=== PATIENT | male | born 1990 | race Caucasian/White ===

== ENCOUNTER 2018-05-24 17:01 | Emergency (ER) | payer OTHER ==
[2018-05-24 18:07] LABS: ADD MAN DIFF? NO
[2018-05-24 18:10] LABS: BASO # 0.1 x10^3/uL (0.0-0.2); BASO % 1 % (0-3); EOS # 0.1 x10^3/uL (0.0-0.7); EOS % 1 % (0-3); HEMATOCRIT 43.8 % (39.0-53.0); HEMOGLOBIN 15.2 g/dL (13.0-17.5); LYMPH % 22 % (24-48); MEAN CORPUSCULAR HEMOGLOBIN 31 pg (25-35); MEAN CORPUSCULAR HGB CONC 35 g/dL (31-37); MEAN CORPUSCULAR VOLUME 88 fL (79-100); MONO # 0.8 x10^3/uL (0.0-1.1); MONO % 9 % (0-9); NEUT # 6.3 x10^3uL (1.8-7.7); NEUT % 68 % (31-73); PLATELET COUNT 313 x10^3/uL (140-400); RED BLOOD COUNT 4.95 x10^6/uL (4.30-5.70); RED CELL DISTRIBUTION WIDTH 13.9 % (11.5-14.5); WHITE BLOOD COUNT 9.3 x10^3/uL (4.0-11.0)
[2018-05-24 18:19] LABS: ANION GAP 10 (6-14); BLOOD UREA NITROGEN 14 mg/dL (8-26); BUN/CREATININE RATIO 18 (6-20); CALCIUM 9.5 mg/dL (8.5-10.1); CARBON DIOXIDE 26 mmol/L (21-32); CHLORIDE 103 mmol/L (98-107); CREATININE 0.8 mg/dL (0.7-1.3); GLUCOSE 73 mg/dL (70-99); POTASSIUM 3.9 mmol/L (3.5-5.1); SODIUM 139 mmol/L (136-145)
[2018-05-24 18:25] LABS: ALBUMIN 4.5 g/dL (3.4-5.0); ALBUMIN/GLOBULIN RATIO 1.4 (1.0-1.7); ALK PHOS 111 U/L (46-116); ALT (SGPT) 32 U/L (16-63); AST (SGOT) 27 U/L (15-37); TOTAL BILIRUBIN 1.2 mg/dL (0.2-1.0); TOTAL PROTEIN 7.7 g/dL (6.4-8.2)
[2018-05-24 18:41] LABS: BILIRUBIN,URINE NEGATIVE (NEG); CLARITY,URINE CLOUDY; COLOR,URINE YELLOW; GLUCOSE,URINE NEGATIVE (NEG); NITRITE,URINE NEGATIVE (NEG); PH,URINE 7.5; PROTEIN,URINE NEGATIVE (NEG-TRACE); UROBILINOGEN,URINE 0.2 mg/dL (0.2 mg/dL)
[2018-05-24 18:45] LABS: BARBITURATES NEG (NEG); BENZODIAZEPINES NEG (NEG); CANNABINOIDS NEG (NEG); COCAINE NEG (NEG); METHADONE NEG (NEG); OPIATES NEG (NEG); PHENCYCLIDINE NEG (NEG)
[2018-05-24 18:46] LABS: AMPHETAMINE/METHAMPHETAMINE POS (NEG); ETHANOL, URINE NEG (NEG)
[2018-05-24 18:54] LABS: AMORPHOUS SEDIMENT,UR PRESENT /HPF
[2018-05-24 18:55] LABS: BACTERIA,URINE FEW /HPF (0-FEW); RBC,URINE 0 /HPF (0-2); SPERM,URINE PRESENT /HPF; WBC,URINE 0 /HPF (0-4)
== END 2018-05-24 19:27 | disposition home or self-care (01) ==
LOC: ER 17:01
DX: F15.129 Other stimulant abuse with intoxication, unspecified (principal); F31.9 Bipolar disorder, unspecified
CPT/HCPCS: 36415; 80053; 80307; 81001; 85025; 99284

== ENCOUNTER 2020-12-04 14:33 | Inpatient (IN) | payer OTHER ==
[~2020-12-04] VITALS: Ht 172.7 cm; Wt 77.1 kg
[2020-12-04] MEDS ORDERED: FUROSEMIDE 40 MG/4 ML VIAL. IVP ONE (15:30)
[2020-12-04 16:23] LABS: BILIRUBIN,URINE NEGATIVE (NEG); CLARITY,URINE CLEAR; COLOR,URINE AMBER; NITRITE,URINE NEGATIVE (NEG); PH,URINE 6.5 (<5.0-8.0); PROTEIN,URINE NEGATIVE (NEG-TRACE)
[2020-12-04 16:28] LABS: BARBITURATES NEG (NEG); BENZODIAZEPINES NEG (NEG); CANNABINOIDS NEG (NEG); COCAINE NEG (NEG); METHADONE NEG (NEG); OPIATES NEG (NEG); PHENCYCLIDINE NEG (NEG)
[2020-12-04 16:30] LABS: AMPHETAMINE/METHAMPHETAMINE NEG (NEG)
--- NOTE | 2020-12-04 16:31 | PHYS DOC ---
Past Medical History Past Medical History: Bipolar, Other Additional Past Medical Histor: aspbergers, bipolar, anxiety, SI, Suicide attempts Past Surgical History: No Surgical History Smoking Status: Never Smoker Alcohol Use: Heavy Drug Use: Cocaine, Methamphetamine, Other General Adult EDM: Chief Complaint: SUICDAL IDEATION HPI: HPI: Patient is a 30 year old male with a history of bipolar presenting to the ED [facility] complaining of suicidal ideation. Patient states today he has felt like killing himself with a gun he has at home. He states he called [facility] where he has been admitted for similar symptoms and they instructed him to come to the ED because they did not have a bed. Patient is currently on 1:1 Review of Systems: Review of Systems: Constitutional: Denies fever or chills. [] Eyes: Denies change in visual acuity. [] HENT: Denies nasal congestion or sore throat. [] Respiratory: Denies cough or shortness of breath. [] Cardiovascular: Denies chest pain or edema. [] GI: Denies abdominal pain, nausea, vomiting, bloody stools or diarrhea. [] : Denies dysuria. [] Musculoskeletal: Denies back pain or joint pain. [] Integument: Denies rash. [] Neurologic: Denies headache, focal weakness or sensory changes. [] Psychiatric: reports SI Heart Score: Risk Factors: Risk Factors: DM, Current or recent (<one month) smoker, HTN, HLP, family history of CAD, obesity. Risk Scores: Score 0 - 3: 2.5% MACE over next 6 weeks - Discharge Home Score 4 - 6: 20.3% MACE over next 6 weeks - Admit for Clinical Observation Score 7 - 10: 72.7% MACE over next 6 weeks - Early Invasive Strategies Current Medications: Current Medications Medications (Trade) Dose Ordered Sig/Benny Start Time Stop Time Status Last Admin Dose Admin Furosemide (Lasix) 40 mg 1X ONCE 12/04/20 15:30 12/04/20 15:31 Cancel Allergies: Allergies: Allergies Coded Allergies Type Severity Reaction Last Updated Verified No Known Drug Allergies 03/28/14 No Physical Exam: PE: Constitutional: Well developed, well nourished, no acute distress, non-toxic appearance. [] HENT: Normocephalic, atraumatic, bilateral external ears normal, oropharynx moist, no oral exudates, nose normal. [] Eyes: PERRLA, EOMI, conjunctiva normal, no discharge. [] Neck: Normal range of motion, no tenderness, supple, no stridor. [] Cardiovascular:Heart rate regular rhythm, no murmur [] Lungs & Thorax: Bilateral breath sounds clear to auscultation [] Abdomen: Bowel sounds normal, soft, no tenderness, no masses, no pulsatile masses. [] Skin: Warm, dry, no erythema, no rash. [] Back: No tenderness, no CVA tenderness. [] Extremities: No tenderness, no cyanosis, no clubbing, ROM intact, no edema. [] Neurologic: Alert and oriented X 3, normal motor function, normal sensory fun ction, no focal deficits noted. [] Psychologic: Appears anxious shaking Current Patient Data: Vital Signs: Vital Signs Date Time Temp Pulse Resp B/P (MAP) Pulse Ox O2 Delivery O2 Flow Rate FiO2 12/04/20 16:00 70 20 140/84 (102) 97 Room Air 12/04/20 14:40 98.2 98.2 EKG: EK interpreted by DR. Ornelas sinus rhythm HR 62 no STEMI[] Radiology/Procedures: Radiology/Procedures: [] Course & Med Decision Making: Course & Med Decision Making Pertinent Labs and Imaging studies reviewed. (See chart for details) This is a 30-year-old male presenting to the ED today complaining of suicidal ideation. See HPI. Labs Currently on 1:1 1630 Ree from the PAT in the ED with patient, she states patient can go to to psych for admission but they need a negative COVID-19 test. Patient has been admitted until his COVID-19 PCR test comes back. Spoke to Dr. Mackey who accepted patient for admission Adriana Disclaimer: Adriana Disclaimer: This electronic medical record was generated, in whole or in part, using a voice recognition dictation system. Departure Departure Impression: Primary Impression: Suicidal ideations Disposition: ADMITTED INPT THIS HOSP Condition: STABLE Referrals: UNKNOWN PCP NAME (PCP) RAYSHAWN VILLATORO APRN Dec 04, 2020 16:31
[2020-12-04 16:41] LABS: BACTERIA,URINE FEW /HPF (0-FEW)
[2020-12-04 16:42] LABS: RBC,URINE 0 /HPF (0-2)
--- NOTE | 2020-12-04 17:26 | PDOC1 ---
History and Physical Date of Admission Date of Admission DATE: 12/04/20 TIME: 17:26 Identification/Chief Complaint Chief Complaint Suicidal ideation Source Source: Chart review, Patient History of Present Illness History of Present Illness Mr Rosales is a 30 year old male with a history of bipolar disorder, aspergers, polysubstance abuse, ETOH abuse, history of suicide attempts who is presenting to the ED today complaining of suicidal ideation. Tells nursing staff nurse practitioner myself that he has a gun at home and he is thinking of killing himself. He called [facility] where he has been admitted for similar symptoms and they instructed him to come to the nearest ED because they did not have a bed for admission and require COVID-19 testing. Very anxious in ED. Labs within normal limits. Tox screen negative. Patient is currently on 1:1 EKG sinus rhythm HR 62 no STEMI Nurse psych liaison can arrange placement inpatient psych once COVID 19 testing is negative. Admitted for further observation for his own safety given he expressed a suicide plan. Past Medical History Psych: Anxiety, Addictions, Bipolar, Depression Past Surgical History Past Surgical History: No pertinent history Family History Family History: Depression (Mother) Social History Smoke: No ALCOHOL: heavy Drugs: Cocaine, Crystal meth Current Problem List Problem List Problems Medical Problems: (1) Suicidal ideations Status: Acute Current Medications Current Medications Current Medications Furosemide (Lasix) 40 mg 1X ONCE IVP ; Start 12/04/20 at 15:30; Stop 12/04/20 at 15:31; Status Cancel Allergies Allergies: Coded Allergies: No Known Drug Allergies (Unverified , 03/28/14) ROS General: YES: Fatigue, Malaise; No: Chills, Night Sweats, Appetite, Other PSYCHOLOGICAL ROS: YES: Anxiety, Behavioral Disorder, Concentration difficultie , Depression, Irritablity, Mood Swings, Obsessive thoughts, Suicidal ideation Eyes: No Blurry vision, No Decreased vision, No Double vision, No Dry eyes, No Excessive tearing, No Eye Pain, No Itchy Eyes, No Loss of vision, No Photophobia, No Scotomata, No Uses contacts, No Uses glasses, No Other HEENT: No: Heacaches, Visual Changes, Hearing change, Nasal congestion, Nasal discharge, Oral lesions, Sinus pain, Sore Throat, Epistaxis, Sneezing, Snoring, Tinnitus, Vertigo, Vocal changes, Other ALLERGY AND IMMUNOLOGY: No: Hives, Insect Bite Sensitivity, Itchy/Watery Eyes, Nasal Congestion, Post Nasal Drip, Seasonal Allergies, Other Hematological and Lymphatic: No: Bleeding Problems, Blood Clots, Blood Transfusions, Brusing, Night Sweats, Pallor, Swollen Lymph Nodes, Other Breast: No New/Changing Breast Lumps, No Nipple changes, No Nipple discharge, No Other Respiratory: No: Cough, Hemoptysis, Orthopnea, Pleuritic Pain, Shortness of breath, SOB with excertion, Sputum Changes, Stridor, Tachypnea, Wheezing, Other Cardiovascular: No Chest Pain, No Palpitations, No Orthopnea, No Paroxysmal Noc. Dyspnea, No Edema, No Lt Headedness, No Other Gastrointestinal: No Nausea, No Vomiting, No Abdominal Pain, No Diarrhea, No Constipation, No Melena, No Hematochezia, No Other Genitourinary: No Dysuria, No Frequency, No Incontinence, No Hematuria, No Retention, No Discharge, No Urgency, No Pain, No Flank Pain, No Other, No , No , No , No , No , No , No Musculoskeletal: No Gait Disturbance, No Joint Pain, No Joint Stiffness, No Joint Swelling, No Muscle Pain, No Muscular Weakness, No Pain In:, No Swelling In:, No Other Neurological: No Behavorial Changes, No Bowel/Bladder ControlChng, No Confusion, No Dizziness, No Gait Disturbance, No Headaches, No Impaired Coord/balance, No Memory Loss, No Numbness/Tingling, No Seizures, No Speech Problems, No Tremors, No Visual Changes, No Weakness, No Other Skin: No Dry Skin, No Eczema, No Hair Changes, No Lumps, No Mole Changes, No Mottling, No Nail Changes, No Pruritus, No Rash, No Skin Lesion Changes, No Other, No Acne Physical Exam General: Alert, Oriented X3, Cooperative, mild distress HEENT: Atraumatic, PERRLA, EOMI, Mucous membr. moist/pink Vitals Vitals Vital Signs Date Time Temp Pulse Resp B/P (MAP) Pulse Ox O2 Delivery O2 Flow Rate FiO2 12/04/20 17:00 65 16 139/68 (91) 98 Room Air 12/04/20 14:40 98.2 98.2 Labs Labs Laboratory Tests Test 12/04/20 16:05 Urine Collection Type Void Urine Color Shira Urine Clarity Clear Urine pH 6.5 (<5.0-8.0) Urine Specific Conway 1.025 (1.000-1.030) Urine Protein Negative mg/dL (NEG-TRACE) Urine Glucose (UA) Negative mg/dL (NEG) Urine Ketones (Stick) Trace mg/dL (NEG) Urine Blood Negative (NEG) Urine Nitrite Negative (NEG) Urine Bilirubin Negative (NEG) Urine Urobilinogen Dipstick 1.0 mg/dL (0.2 mg/dL) Urine Leukocyte Esterase Negative (NEG) Urine RBC 0 /HPF (0-2) Urine WBC 1-4 /HPF (0-4) Urine Squamous Epithelial Cells Occ /LPF Urine Bacteria Few /HPF (0-FEW) Urine Mucus Mod /LPF Urine Opiates Screen Neg (NEG) Urine Methadone Screen Neg (NEG) Urine Barbiturates Neg (NEG) Urine Phencyclidine Screen Neg (NEG) Urine Amphetamine/Methamphetamine Neg (NEG) Urine Benzodiazepines Screen Neg (NEG) Urine Cocaine Screen Neg (NEG) Urine Cannabinoids Screen Neg (NEG) Urine Ethyl Alcohol Neg (NEG) Laboratory Tests Test 12/04/20 16:05 Urine Collection Type Void Urine Color Shira Urine Clarity Clear Urine pH 6.5 (<5.0-8.0) Urine Specific Conway 1.025 (1.000-1.030) Urine Protein Negative mg/dL (NEG-TRACE) Urine Glucose (UA) Negative mg/dL (NEG) Urine Ketones (Stick) Trace mg/dL (NEG) Urine Blood Negative (NEG) Urine Nitrite Negative (NEG) Urine Bilirubin Negative (NEG) Urine Urobilinogen Dipstick 1.0 mg/dL (0.2 mg/dL) Urine Leukocyte Esterase Negative (NEG) Urine RBC 0 /HPF (0-2) Urine WBC 1-4 /HPF (0-4) Urine Squamous Epithelial Cells Occ /LPF Urine Bacteria Few /HPF (0-FEW) Urine Mucus Mod /LPF Urine Opiates Screen Neg (NEG) Urine Methadone Screen Neg (NEG) Urine Barbiturates Neg (NEG) Urine Phencyclidine Screen Neg (NEG) Urine Amphetamine/Methamphetamine Neg (NEG) Urine Benzodiazepines Screen Neg (NEG) Urine Cocaine Screen Neg (NEG) Urine Cannabinoids Screen Neg (NEG) Urine Ethyl Alcohol Neg (NEG) VTE Prophylaxis Ordered VTE Prophylaxis Devices: No VTE Pharmacological Prophylaxi: No Assessment/Plan Assessment/Plan A/P: Suicidal ideation -with an active plan to shoot himself. Patient is not safe to discharge home in the care of his family as he has previously attempted suicide and had multiple inpatient psychiatric placements. Methamphetamine abuse -not currently active. Alcohol abuse -currently heavily drinking. Will monitor for withdrawal symptoms as needed Ativan. Bipolar disorder with depression -we will continue home medications FEN - General diet PPX - Ambulatory FULL CODE DIspo - inpatient for safety due to suicidal ideation and active plan to shoot himself he is not safe for discharge. Justifications for Admission Other Justification LEANA JOHN MD Dec 04, 2020 17:26
[2020-12-04] MEDS ORDERED: QUET200T PO (17:29)
[2020-12-04] MEDS ORDERED: DIVA500T17 PO (17:29)
[2020-12-04] MEDS ORDERED: ESCI20TA8 PO (17:29)
[2020-12-04 18:22] LABS: BASO # 0.1 x10^3/uL (0.0-0.2); BASO % 1 % (0-3); EOS # 0.1 x10^3/uL (0.0-0.7); EOS % 2 % (0-3); HEMATOCRIT 43.9 % (39.0-53.0); HEMOGLOBIN 15.5 g/dL (13.0-17.5); LYMPH # 1.8 x10^3/uL (1.0-4.8); LYMPH % 27 % (24-48); MEAN CORPUSCULAR HEMOGLOBIN 32 pg (25-35); MEAN CORPUSCULAR HGB CONC 35 g/dL (31-37); MEAN CORPUSCULAR VOLUME 91 fL (79-100); MONO # 0.5 x10^3/uL (0.0-1.1); MONO % 8 % (0-9); NEUT % 62 % (31-73); PLATELET COUNT 243 x10^3/uL (140-400); RED BLOOD COUNT 4.84 x10^6/uL (4.30-5.70); RED CELL DISTRIBUTION WIDTH 13.5 % (11.5-14.5); WHITE BLOOD COUNT 6.5 x10^3/uL (4.0-11.0)
[2020-12-04 18:35] LABS: CALCIUM 9.2 mg/dL (8.5-10.1); CREATININE 0.9 mg/dL (0.7-1.3); GFR 99.8; POTASSIUM 4.4 mmol/L (3.5-5.1)
[2020-12-04 18:38] LABS: ALBUMIN/GLOBULIN RATIO 1.2 (1.0-1.7); ETHANOL < 10 mg/dL (0-10); TOTAL BILIRUBIN 0.8 mg/dL (0.2-1.0); TOTAL PROTEIN 7.3 g/dL (6.4-8.2)
[2020-12-04 18:39] LABS: ACETAMIN < 2 mcg/ml (10-30); SALIC < 2.8 mg/dL (2.8-20.0)
[2020-12-04] MEDS ORDERED: ACETAMINOPHEN 325 MG TABLET. PO PRN (18:45)
[2020-12-04] MEDS ORDERED: ONDANSETRON PF 4 MG/2 ML VIAL. IV PRN (18:45)
[2020-12-04] MEDS: LORazepam 0.5 MG TABLET PO PRN ×2 (19:42→23:42)
[2020-12-04 20:00] VITALS: BP 149/91
[2020-12-04] MEDS: QUEtiapine 100 MG TABLET. PO SCH ×2 (20:58→22:39)
--- NOTE | 2020-12-04 21:31 | NUR ---
For CAGE assessment, not fully completed @ this time. Pt claimed he drinks 750 ml of vodka 3-4 times a week. Pt claimed he had been asked same questions today. Will try later.
[2020-12-04] MEDS: DIVALPROEX EXTENDED RELEASE 500 MG TAB.ER.24H. PO SCH (22:40)
[2020-12-04 23:00] VITALS: BP 151/83
[2020-12-05 03:07] VITALS: BP 155/92
[2020-12-05 06:57] VITALS: BP 119/68
[2020-12-05] MEDS: CITALOPRAM 20 MG TABLET. PO SCH (07:57)
[2020-12-05] MEDS: LORazepam 0.5 MG TABLET PO PRN ×3 (08:08→16:14)
--- NOTE | 2020-12-05 10:21 | NUR ---
JONATHAN following for discharge planning. Spoke with RN and reviewed chart. JONATHAN consulted to assist with in-patient pscyahtric treatment and substance abuse. Pt from home, room air, COVID pending (Rapid negative). Awaiting results of PCR for possible placement. Pt SI with [facility]ela of SI. Referral to Gustavo with [facility]. Pt has been to the inpatient behavioral health unit at . JONATHAN following. Addendum: 12/05/20 at 1458 by MARNIE CASTILLO Spoke with Rebecca from [facility]. is full. PCR COVID result came back negative. Clinicals printed and referral sent to [facility] in [place] [employer]. Pt will likely discharge this evening pending physician acceptance.
[2020-12-05 10:35] VITALS: BP 140/87
--- NOTE | 2020-12-05 10:54 | PDOC ---
PROGRESS NOTES Date of Service: DATE: 12/05/20 TIME: 10:53 Chief Complaint Chief Complaint Suicidal ideation -with an active plan to shoot himself. Patient is not safe to discharge home in the care of his family as he has previously attempted suicide and had multiple inpatient psychiatric placements. Methamphetamine abuse -not currently active. Alcohol abuse -currently heavily drinking. Will monitor for withdrawal symptoms as needed Ativan. Bipolar disorder with depression -we will continue home medications FEN - General diet PPX - Ambulatory FULL CODE DIspo - inpatient for safety due to suicidal ideation and active plan to shoot himself he is not safe for discharge. History of Present Illness History of Present Illness History of Present Illness Mr Rosales is a 30 year old male with a history of bipolar disorder, aspergers, polysubstance abuse, ETOH abuse, history of suicide attempts who is presenting to the ED today complaining of suicidal ideation. Tells nursing staff nurse practitioner myself that he has a gun at home and he is thinking of killing himself. He called [facility] where he has been admitted for similar symptoms and they instructed him to come to the nearest ED because they did not have a bed for admission and require COVID-19 testing. Very anxious in ED. Labs within normal limits. Tox screen negative. Patient is currently on 1:1 EKG sinus rhythm HR 62 no STEMI Nurse psych liaison can arrange placement inpatient psych once COVID 19 testing is negative. Admitted for further observation for his own safety given he expressed a suicide plan. 12/05: Still having 50-50 suicidal ideation overall he does not seem to be dep ressed but he is very upfront alone how much he drinks and the drugs he uses in order to cope with his depression. We will wait for case management for disposition Vitals Vitals Vital Signs Date Time Temp Pulse Resp B/P (MAP) Pulse Ox O2 Delivery O2 Flow Rate FiO2 12/05/20 10:35 96.7 72 16 140/87 (104) 96 Room Air 96.7 Physical Exam General: Alert, Oriented X3, Cooperative, mild distress Heart: Regular rate, Normal S1, Normal S2 Lungs: Clear Abdomen: Normal bowel sounds, Soft Extremities: No clubbing, No cyanosis Skin: No rashes, No breakdown Labs LABS Laboratory Tests Test 12/04/20 16:05 12/04/20 18:10 Urine Collection Type Void Urine Color Shira Urine Clarity Clear Urine pH 6.5 (<5.0-8.0) Urine Specific [place] 1.025 (1.000-1.030) Urine Protein Negative mg/dL (NEG-TRACE) Urine Glucose (UA) Negative mg/dL (NEG) Urine Ketones (Stick) Trace mg/dL (NEG) Urine Blood Negative (NEG) Urine Nitrite Negative (NEG) Urine Bilirubin Negative (NEG) Urine Urobilinogen Dipstick 1.0 mg/dL (0.2 mg/dL) Urine Leukocyte Esterase Negative (NEG) Urine RBC 0 /HPF (0-2) Urine WBC 1-4 /HPF (0-4) Urine Squamous Epithelial Cells Occ /LPF Urine Bacteria Few /HPF (0-FEW) Urine Mucus Mod /LPF Urine Opiates Screen Neg (NEG) Urine Methadone Screen Neg (NEG) Urine Barbiturates Neg (NEG) Urine Phencyclidine Screen Neg (NEG) Urine Amphetamine/Methamphetamine Neg (NEG) Urine Benzodiazepines Screen Neg (NEG) Urine Cocaine Screen Neg (NEG) Urine Cannabinoids Screen Neg (NEG) Urine Ethyl Alcohol Neg (NEG) White Blood Count 6.5 x10^3/uL (4.0-11.0) Red Blood Count 4.84 x10^6/uL (4.30-5.70) Hemoglobin 15.5 g/dL (13.0-17.5) Hematocrit 43.9 % (39.0-53.0) Mean Corpuscular Volume 91 fL (79-100) Mean Corpuscular Hemoglobin 32 pg (25-35) Mean Corpuscular Hemoglobin Concent 35 g/dL (31-37) Red Cell Distribution Width 13.5 % (11.5-14.5) Platelet Count 243 x10^3/uL (140-400) Neutrophils (%) (Auto) 62 % (31-73) Lymphocytes (%) (Auto) 27 % (24-48) Monocytes (%) (Auto) 8 % (0-9) Eosinophils (%) (Auto) 2 % (0-3) Basophils (%) (Auto) 1 % (0-3) Neutrophils # (Auto) 4.0 x10^3/uL (1.8-7.7) Lymphocytes # (Auto) 1.8 x10^3/uL (1.0-4.8) Monocytes # (Auto) 0.5 x10^3/uL (0.0-1.1) Eosinophils # (Auto) 0.1 x10^3/uL (0.0-0.7) Basophils # (Auto) 0.1 x10^3/uL (0.0-0.2) Sodium Level 140 mmol/L (136-145) Potassium Level 4.4 mmol/L (3.5-5.1) Chloride Level 104 mmol/L (98-107) Carbon Dioxide Level 28 mmol/L (21-32) Anion Gap 8 (6-14) Blood Urea Nitrogen 11 mg/dL (8-26) Creatinine 0.9 mg/dL (0.7-1.3) Estimated GFR (Cockcroft-Gault) 99.8 BUN/Creatinine Ratio 12 (6-20) Glucose Level 91 mg/dL (70-99) Calcium Level 9.2 mg/dL (8.5-10.1) Total Bilirubin 0.8 mg/dL (0.2-1.0) Aspartate Amino Transf (AST/SGOT) 20 U/L (15-37) Alanine Aminotransferase (ALT/SGPT) 37 U/L (16-63) Alkaline Phosphatase 63 U/L (46-116) Total Protein 7.3 g/dL (6.4-8.2) Albumin 4.0 g/dL (3.4-5.0) Albumin/Globulin Ratio 1.2 (1.0-1.7) Lipase 160 U/L (73-393) Salicylates Level < 2.8 mg/dL (2.8-20.0) Salicylate Last Dose Date Unk Salicylate Last Dose Time Unk Acetaminophen Level < 2 mcg/ml (10-30) Acetaminophen Last Dose Date Unk Acetaminophen Last Dose Time Unk Ethyl Alcohol Level < 10 mg/dL (0-10) SARS-CoV-2 Antigen (Rapid) Negative (NEGATIVE) Review of Systems Review of Systems Review of systems pertinent as per HPI otherwise 14 point review of system is negative Assessment and Plan Assessmemt and Plan Problems Medical Problems: (1) Suicidal ideations Status: Acute Comment Review of Relevant I have reviewed the following items leyla (where applicable) has been applied. Labs Laboratory Tests Test 12/04/20 16:05 12/04/20 18:10 Urine Collection Type Void Urine Color Shira Urine Clarity Clear Urine pH 6.5 (<5.0-8.0) Urine Specific [place] 1.025 (1.000-1.030) Urine Protein Negative mg/dL (NEG-TRACE) Urine Glucose (UA) Negative mg/dL (NEG) Urine Ketones (Stick) Trace mg/dL (NEG) Urine Blood Negative (NEG) Urine Nitrite Negative (NEG) Urine Bilirubin Negative (NEG) Urine Urobilinogen Dipstick 1.0 mg/dL (0.2 mg/dL) Urine Leukocyte Esterase Negative (NEG) Urine RBC 0 /HPF (0-2) Urine WBC 1-4 /HPF (0-4) Urine Squamous Epithelial Cells Occ /LPF Urine Bacteria Few /HPF (0-FEW) Urine Mucus Mod /LPF Urine Opiates Screen Neg (NEG) Urine Methadone Screen Neg (NEG) Urine Barbiturates Neg (NEG) Urine Phencyclidine Screen Neg (NEG) Urine Amphetamine/Methamphetamine Neg (NEG) Urine Benzodiazepines Screen Neg (NEG) Urine Cocaine Screen Neg (NEG) Urine Cannabinoids Screen Neg (NEG) Urine Ethyl Alcohol Neg (NEG) White Blood Count 6.5 x10^3/uL (4.0-11.0) Red Blood Count 4.84 x10^6/uL (4.30-5.70) Hemoglobin 15.5 g/dL (13.0-17.5) Hematocrit 43.9 % (39.0-53.0) Mean Corpuscular Volume 91 fL (79-100) Mean Corpuscular Hemoglobin 32 pg (25-35) Mean Corpuscular Hemoglobin Concent 35 g/dL (31-37) Red Cell Distribution Width 13.5 % (11.5-14.5) Platelet Count 243 x10^3/uL (140-400) Neutrophils (%) (Auto) 62 % (31-73) Lymphocytes (%) (Auto) 27 % (24-48) Monocytes (%) (Auto) 8 % (0-9) Eosinophils (%) (Auto) 2 % (0-3) Basophils (%) (Auto) 1 % (0-3) Neutrophils # (Auto) 4.0 x10^3/uL (1.8-7.7) Lymphocytes # (Auto) 1.8 x10^3/uL (1.0-4.8) Monocytes # (Auto) 0.5 x10^3/uL (0.0-1.1) Eosinophils # (Auto) 0.1 x10^3/uL (0.0-0.7) Basophils # (Auto) 0.1 x10^3/uL (0.0-0.2) Sodium Level 140 mmol/L (136-145) Potassium Level 4.4 mmol/L (3.5-5.1) Chloride Level 104 mmol/L (98-107) Carbon Dioxide Level 28 mmol/L (21-32) Anion Gap 8 (6-14) Blood Urea Nitrogen 11 mg/dL (8-26) Creatinine 0.9 mg/dL (0.7-1.3) Estimated GFR (Cockcroft-Gault) 99.8 BUN/Creatinine Ratio 12 (6-20) Glucose Level 91 mg/dL (70-99) Calcium Level 9.2 mg/dL (8.5-10.1) Total Bilirubin 0.8 mg/dL (0.2-1.0) Aspartate Amino Transf (AST/SGOT) 20 U/L (15-37) Alanine Aminotransferase (ALT/SGPT) 37 U/L (16-63) Alkaline Phosphatase 63 U/L (46-116) Total Protein 7.3 g/dL (6.4-8.2) Albumin 4.0 g/dL (3.4-5.0) Albumin/Globulin Ratio 1.2 (1.0-1.7) Lipase 160 U/L (73-393) Salicylates Level < 2.8 mg/dL (2.8-20.0) Salicylate Last Dose Date Unk Salicylate Last Dose Time Unk Acetaminophen Level < 2 mcg/ml (10-30) Acetaminophen Last Dose Date Unk Acetaminophen Last Dose Time Unk Ethyl Alcohol Level < 10 mg/dL (0-10) SARS-CoV-2 Antigen (Rapid) Negative (NEGATIVE) Laboratory Tests Test 12/04/20 16:05 12/04/20 18:10 Urine Collection Type Void Urine Color Shira Urine Clarity Clear Urine pH 6.5 (<5.0-8.0) Urine Specific [place] 1.025 (1.000-1.030) Urine Protein Negative mg/dL (NEG-TRACE) Urine Glucose (UA) Negative mg/dL (NEG) Urine Ketones (Stick) Trace mg/dL (NEG) Urine Blood Negative (NEG) Urine Nitrite Negative (NEG) Urine Bilirubin Negative (NEG) Urine Urobilinogen Dipstick 1.0 mg/dL (0.2 mg/dL) Urine Leukocyte Esterase Negative (NEG) Urine RBC 0 /HPF (0-2) Urine WBC 1-4 /HPF (0-4) Urine Squamous Epithelial Cells Occ /LPF Urine Bacteria Few /HPF (0-FEW) Urine Mucus Mod /LPF Urine Opiates Screen Neg (NEG) Urine Methadone Screen Neg (NEG) Urine Barbiturates Neg (NEG) Urine Phencyclidine Screen Neg (NEG) Urine Amphetamine/Methamphetamine Neg (NEG) Urine Benzodiazepines Screen Neg (NEG) Urine Cocaine Screen Neg (NEG) Urine Cannabinoids Screen Neg (NEG) Urine Ethyl Alcohol Neg (NEG) White Blood Count 6.5 x10^3/uL (4.0-11.0) Red Blood Count 4.84 x10^6/uL (4.30-5.70) Hemoglobin 15.5 g/dL (13.0-17.5) Hematocrit 43.9 % (39.0-53.0) Mean Corpuscular Volume 91 fL (79-100) Mean Corpuscular Hemoglobin 32 pg (25-35) Mean Corpuscular Hemoglobin Concent 35 g/dL (31-37) Red Cell Distribution Width 13.5 % (11.5-14.5) Platelet Count 243 x10^3/uL (140-400) Neutrophils (%) (Auto) 62 % (31-73) Lymphocytes (%) (Auto) 27 % (24-48) Monocytes (%) (Auto) 8 % (0-9) Eosinophils (%) (Auto) 2 % (0-3) Basophils (%) (Auto) 1 % (0-3) Neutrophils # (Auto) 4.0 x10^3/uL (1.8-7.7) Lymphocytes # (Auto) 1.8 x10^3/uL (1.0-4.8) Monocytes # (Auto) 0.5 x10^3/uL (0.0-1.1) Eosinophils # (Auto) 0.1 x10^3/uL (0.0-0.7) Basophils # (Auto) 0.1 x10^3/uL (0.0-0.2) Sodium Level 140 mmol/L (136-145) Potassium Level 4.4 mmol/L (3.5-5.1) Chloride Level 104 mmol/L (98-107) Carbon Dioxide Level 28 mmol/L (21-32) Anion Gap 8 (6-14) Blood Urea Nitrogen 11 mg/dL (8-26) Creatinine 0.9 mg/dL (0.7-1.3) Estimated GFR (Cockcroft-Gault) 99.8 BUN/Creatinine Ratio 12 (6-20) Glucose Level 91 mg/dL (70-99) Calcium Level 9.2 mg/dL (8.5-10.1) Total Bilirubin 0.8 mg/dL (0.2-1.0) Aspartate Amino Transf (AST/SGOT) 20 U/L (15-37) Alanine Aminotransferase (ALT/SGPT) 37 U/L (16-63) Alkaline Phosphatase 63 U/L (46-116) Total Protein 7.3 g/dL (6.4-8.2) Albumin 4.0 g/dL (3.4-5.0) Albumin/Globulin Ratio 1.2 (1.0-1.7) Lipase 160 U/L (73-393) Salicylates Level < 2.8 mg/dL (2.8-20.0) Salicylate Last Dose Date Unk Salicylate Last Dose Time Unk Acetaminophen Level < 2 mcg/ml (10-30) Acetaminophen Last Dose Date Unk Acetaminophen Last Dose Time Unk Ethyl Alcohol Level < 10 mg/dL (0-10) SARS-CoV-2 Antigen (Rapid) Negative (NEGATIVE) Medications Current Medications Furosemide (Lasix) 40 mg 1X ONCE IVP ; Start 12/04/20 at 15:30; Stop 12/04/20 at 15:31; Status Cancel Citalopram Hydrobromide (CeleXA) 40 mg DAILY PO Last administered on 12/05/20at 07:57; Start 12/05/20 at 09:00 Quetiapine Fumarate (SEROquel) 200 mg QHS PO Last administered on 12/04/20at 22:39; Start 12/04/20 at 21:00 Ondansetron HCl (Zofran) 4 mg PRN Q4HRS PRN IV NAUSEA/VOMITING; Start 12/04/20 at 18:45 Acetaminophen (Tylenol) 650 mg PRN Q4HRS PRN PO TEMP OVER 100.4F OR MILD PAIN; Start 12/04/20 at 18:45 Lorazepam (Ativan) 0.5 mg PRN Q4HRS PRN PO ANXIETY / AGITATION Last administered on 12/05/20at 08:08; Start 12/04/20 at 18:45 Divalproex Sodium (Depakote Er) 1,500 mg HS PO Last administered on 12/04/20at 22:40; Start 12/04/20 at 22:30 Active Scripts Active Reported Escitalopram Oxalate 20 Mg Tablet 1 Tab PO DAILY 90 Days Divalproex Sodium Er (Divalproex Sodium) 500 Mg Tab.er.24h 1,500 Mg PO DAILY 30 Days Quetiapine Fumarate 200 Mg Tablet 1 Tab PO QHS 90 Days Vitals/I & O Vital Sign - Last 24 Hours 12/04/20 12/04/20 12/04/20 12/04/20 14:40 15:00 15:30 16:00 Temp 98.2 98.2 Pulse 62 65 63 70 Resp 18 16 16 20 B/P (MAP) 187/105 (132) 153/72 (99) 133/80 (97) 140/84 (102) Pulse Ox 98 98 97 97 O2 Delivery Room Air Room Air Room Air Room Air 12/04/20 12/04/20 12/04/20 12/04/20 16:30 16:55 17:00 17:30 Pulse 70 65 67 Resp 20 16 16 B/P (MAP) 140/87 (104) 139/68 (91) 133/83 (100) Pulse Ox 98 98 97 O2 Delivery Room Air Room Air Room Air Room Air 12/04/20 12/04/20 12/04/20 12/04/20 18:00 18:30 19:00 19:00 Pulse 62 73 69 70 Resp 20 16 B/P (MAP) 138/75 (96) 154/85 (108) 150/75 (100) 137/81 (99) Pulse Ox 98 99 98 98 O2 Delivery Room Air Room Air Room Air Room Air 12/04/20 12/04/20 12/04/20 12/05/20 20:00 20:00 23:00 03:07 Temp 97.0 96.9 96.3 97.0 96.9 96.3 Pulse 77 81 81 Resp 20 18 18 B/P (MAP) 149/91 (110) 151/83 (105) 155/92 (113) Pulse Ox 95 95 95 O2 Delivery Room Air Room Air Room Air Room Air 12/05/20 12/05/20 12/05/20 06:57 08:00 10:35 Temp 96.7 96.7 Pulse 62 72 Resp 16 16 B/P (MAP) 119/68 (85) 140/87 (104) Pulse Ox 98 96 O2 Delivery Room Air Room Air Room Air Intake and Output 12/04/20 12/04/20 12/05/20 15:00 23:00 07:00 Intake Total 180 ml 240 ml Balance 180 ml 240 ml Justicifation of Admission Dx: Justifications for Admission: Justification of Admission Dx: Comment: (Suicidal ideation) DARY PARKINSON MD Dec 05, 2020 10:54
--- NOTE | 2020-12-05 14:43 | PDOC3 ---
Discharge Summary Visit Information Date of Admission: Dec 04, 2020 Date of Discharge: Dec 05, 2020 Admitting Diagnosis Comment: Suicidal ideation -with an active plan to shoot himself. Patient is not safe to discharge home in the care of his family as he has previously attempted suicide and had multiple inpatient psychiatric placements. Methamphetamine abuse -not currently active. Alcohol abuse -currently heavily drinking. Will monitor for withdrawal symptoms as needed Ativan. Bipolar disorder with depression -we will continue home medications Final Diagnosis Problems Medical Problems: (1) Suicidal ideations Status: Acute Suicidal ideation -with an active plan to shoot himself. Patient is not safe to discharge home in the care of his family as he has previously attempted suicide and had multiple inpatient psychiatric placements. Methamphetamine abuse -not currently active. Alcohol abuse -currently heavily drinking. Will monitor for withdrawal symptoms as needed Ativan. Bipolar disorder with depression -we will continue home medications Brief Hospital Course Allergies Allergies Coded Allergies Type Severity Reaction Last Updated Verified No Known Drug Allergies 03/28/14 No Vital Signs Vital Signs Date Time Temp Pulse Resp B/P (MAP) Pulse Ox O2 Delivery O2 Flow Rate FiO2 12/05/20 10:35 96.7 72 16 140/87 (104) 96 Room Air 96.7 Lab Results Laboratory Tests Test 12/04/20 16:05 12/04/20 18:10 Urine Collection Type Void Urine Color Shira Urine Clarity Clear Urine pH 6.5 (<5.0-8.0) Urine Specific [place] 1.025 (1.000-1.030) Urine Protein Negative mg/dL (NEG-TRACE) Urine Glucose (UA) Negative mg/dL (NEG) Urine Ketones (Stick) Trace mg/dL (NEG) Urine Blood Negative (NEG) Urine Nitrite Negative (NEG) Urine Bilirubin Negative (NEG) Urine Urobilinogen Dipstick 1.0 mg/dL (0.2 mg/dL) Urine Leukocyte Esterase Negative (NEG) Urine RBC 0 /HPF (0-2) Urine WBC 1-4 /HPF (0-4) Urine Squamous Epithelial Cells Occ /LPF Urine Bacteria Few /HPF (0-FEW) Urine Mucus Mod /LPF Urine Opiates Screen Neg (NEG) Urine Methadone Screen Neg (NEG) Urine Barbiturates Neg (NEG) Urine Phencyclidine Screen Neg (NEG) Urine Amphetamine/Methamphetamine Neg (NEG) Urine Benzodiazepines Screen Neg (NEG) Urine Cocaine Screen Neg (NEG) Urine Cannabinoids Screen Neg (NEG) Urine Ethyl Alcohol Neg (NEG) White Blood Count 6.5 x10^3/uL (4.0-11.0) Red Blood Count 4.84 x10^6/uL (4.30-5.70) Hemoglobin 15.5 g/dL (13.0-17.5) Hematocrit 43.9 % (39.0-53.0) Mean Corpuscular Volume 91 fL (79-100) Mean Corpuscular Hemoglobin 32 pg (25-35) Mean Corpuscular Hemoglobin Concent 35 g/dL (31-37) Red Cell Distribution Width 13.5 % (11.5-14.5) Platelet Count 243 x10^3/uL (140-400) Neutrophils (%) (Auto) 62 % (31-73) Lymphocytes (%) (Auto) 27 % (24-48) Monocytes (%) (Auto) 8 % (0-9) Eosinophils (%) (Auto) 2 % (0-3) Basophils (%) (Auto) 1 % (0-3) Neutrophils # (Auto) 4.0 x10^3/uL (1.8-7.7) Lymphocytes # (Auto) 1.8 x10^3/uL (1.0-4.8) Monocytes # (Auto) 0.5 x10^3/uL (0.0-1.1) Eosinophils # (Auto) 0.1 x10^3/uL (0.0-0.7) Basophils # (Auto) 0.1 x10^3/uL (0.0-0.2) Sodium Level 140 mmol/L (136-145) Potassium Level 4.4 mmol/L (3.5-5.1) Chloride Level 104 mmol/L (98-107) Carbon Dioxide Level 28 mmol/L (21-32) Anion Gap 8 (6-14) Blood Urea Nitrogen 11 mg/dL (8-26) Creatinine 0.9 mg/dL (0.7-1.3) Estimated GFR (Cockcroft-Gault) 99.8 BUN/Creatinine Ratio 12 (6-20) Glucose Level 91 mg/dL (70-99) Calcium Level 9.2 mg/dL (8.5-10.1) Total Bilirubin 0.8 mg/dL (0.2-1.0) Aspartate Amino Transf (AST/SGOT) 20 U/L (15-37) Alanine Aminotransferase (ALT/SGPT) 37 U/L (16-63) Alkaline Phosphatase 63 U/L (46-116) Total Protein 7.3 g/dL (6.4-8.2) Albumin 4.0 g/dL (3.4-5.0) Albumin/Globulin Ratio 1.2 (1.0-1.7) Lipase 160 U/L (73-393) Salicylates Level < 2.8 mg/dL (2.8-20.0) Salicylate Last Dose Date Unk Salicylate Last Dose Time Unk Acetaminophen Level < 2 mcg/ml (10-30) Acetaminophen Last Dose Date Unk Acetaminophen Last Dose Time Unk Ethyl Alcohol Level < 10 mg/dL (0-10) Coronavirus (PCR) Not detected (Not Detected) SARS-CoV-2 Antigen (Rapid) Negative (NEGATIVE) Laboratory Tests Test 12/04/20 16:05 12/04/20 18:10 Urine Collection Type Void Urine Color Shira Urine Clarity Clear Urine pH 6.5 (<5.0-8.0) Urine Specific [place] 1.025 (1.000-1.030) Urine Protein Negative mg/dL (NEG-TRACE) Urine Glucose (UA) Negative mg/dL (NEG) Urine Ketones (Stick) Trace mg/dL (NEG) Urine Blood Negative (NEG) Urine Nitrite Negative (NEG) Urine Bilirubin Negative (NEG) Urine Urobilinogen Dipstick 1.0 mg/dL (0.2 mg/dL) Urine Leukocyte Esterase Negative (NEG) Urine RBC 0 /HPF (0-2) Urine WBC 1-4 /HPF (0-4) Urine Squamous Epithelial Cells Occ /LPF Urine Bacteria Few /HPF (0-FEW) Urine Mucus Mod /LPF Urine Opiates Screen Neg (NEG) Urine Methadone Screen Neg (NEG) Urine Barbiturates Neg (NEG) Urine Phencyclidine Screen Neg (NEG) Urine Amphetamine/Methamphetamine Neg (NEG) Urine Benzodiazepines Screen Neg (NEG) Urine Cocaine Screen Neg (NEG) Urine Cannabinoids Screen Neg (NEG) Urine Ethyl Alcohol Neg (NEG) White Blood Count 6.5 x10^3/uL (4.0-11.0) Red Blood Count 4.84 x10^6/uL (4.30-5.70) Hemoglobin 15.5 g/dL (13.0-17.5) Hematocrit 43.9 % (39.0-53.0) Mean Corpuscular Volume 91 fL (79-100) Mean Corpuscular Hemoglobin 32 pg (25-35) Mean Corpuscular Hemoglobin Concent 35 g/dL (31-37) Red Cell Distribution Width 13.5 % (11.5-14.5) Platelet Count 243 x10^3/uL (140-400) Neutrophils (%) (Auto) 62 % (31-73) Lymphocytes (%) (Auto) 27 % (24-48) Monocytes (%) (Auto) 8 % (0-9) Eosinophils (%) (Auto) 2 % (0-3) Basophils (%) (Auto) 1 % (0-3) Neutrophils # (Auto) 4.0 x10^3/uL (1.8-7.7) Lymphocytes # (Auto) 1.8 x10^3/uL (1.0-4.8) Monocytes # (Auto) 0.5 x10^3/uL (0.0-1.1) Eosinophils # (Auto) 0.1 x10^3/uL (0.0-0.7) Basophils # (Auto) 0.1 x10^3/uL (0.0-0.2) Sodium Level 140 mmol/L (136-145) Potassium Level 4.4 mmol/L (3.5-5.1) Chloride Level 104 mmol/L (98-107) Carbon Dioxide Level 28 mmol/L (21-32) Anion Gap 8 (6-14) Blood Urea Nitrogen 11 mg/dL (8-26) Creatinine 0.9 mg/dL (0.7-1.3) Estimated GFR (Cockcroft-Gault) 99.8 BUN/Creatinine Ratio 12 (6-20) Glucose Level 91 mg/dL (70-99) Calcium Level 9.2 mg/dL (8.5-10.1) Total Bilirubin 0.8 mg/dL (0.2-1.0) Aspartate Amino Transf (AST/SGOT) 20 U/L (15-37) Alanine Aminotransferase (ALT/SGPT) 37 U/L (16-63) Alkaline Phosphatase 63 U/L (46-116) Total Protein 7.3 g/dL (6.4-8.2) Albumin 4.0 g/dL (3.4-5.0) Albumin/Globulin Ratio 1.2 (1.0-1.7) Lipase 160 U/L (73-393) Salicylates Level < 2.8 mg/dL (2.8-20.0) Salicylate Last Dose Date Unk Salicylate Last Dose Time Unk Acetaminophen Level < 2 mcg/ml (10-30) Acetaminophen Last Dose Date Unk Acetaminophen Last Dose Time Unk Ethyl Alcohol Level < 10 mg/dL (0-10) Coronavirus (PCR) Not detected (Not Detected) SARS-CoV-2 Antigen (Rapid) Negative (NEGATIVE) Brief Hospital Course History of Present Illness History of Present Illness History of Present Illness Mr Rosales is a 30 year old male with a history of bipolar disorder, aspergers, polysubstance abuse, ETOH abuse, history of suicide attempts who is presenting to the ED today complaining of suicidal ideation. Tells nursing staff nurse practitioner myself that he has a gun at home and he is thinking of killing himself. He called [facility] where he has been admitted for similar symptoms and they instructed him to come to the nearest ED because they did not have a bed for admission and require COVID-19 testing. Very anxious in ED. Labs within normal limits. Tox screen negative. Patient is currently on 1:1 EKG sinus rhythm HR 62 no STEMI Nurse psych liaison can arrange placement inpatient psych once COVID 19 testing is negative. Admitted for further observation for his own safety given he expressed a suicide plan. 12/05: Still having 50-50 suicidal ideation overall he does not seem to be depressed but he is very upfront alone how much he drinks and the drugs he uses in order to cope with his depression. We will wait for case management for disposition. [facility] accepted patient later in the day. Vitals Vitals Vital Signs Date Time Temp Pulse Resp B/P (MAP) Pulse Ox O2 Delivery O2 Flow Rate FiO2 12/05/20 10:35 96.7 72 16 140/87 (104) 96 Room Air 96.7 Physical Exam General: Alert, Oriented X3, Cooperative, mild distress Heart: Regular rate, Normal S1, Normal S2 Lungs: Clear Abdomen: Normal bowel sounds, Soft Extremities: No clubbing, No cyanosis Skin: No rashes, No breakdown Discharge Information Follow Up: As Needed Disposition/Orders: D/C to Another Facility Scheduled Divalproex Sodium (Divalproex Sodium Er) 500 Mg Tab.er.24h, 1,500 MG PO DAILY for Bipolar disorder for 30 Days, #90 Ref 3 (Reported) Entered as Reported by: LEANA JOHN MD on 12/04/201728 Last Action: Continued on 12/04/202228 by TRENT CARTER Escitalopram Oxalate (Escitalopram Oxalate) 20 Mg Tablet, 1 TAB PO DAILY for Bipolar depression for 90 Days, #90 (Reported) Entered as Reported by: LEANA JOHN MD on 12/04/201728 Last Action: Converted on 12/04/201844 by LEANA JOHN MD Quetiapine Fumarate (Quetiapine Fumarate) 200 Mg Tablet, 1 TAB PO QHS for Bipolar disorder for 90 Days, #90 Ref 3 (Reported) Entered as Reported by: LEANA JOHN MD on 12/04/201728 Last Action: Converted on 12/04/201844 by LEANA JOHN MD Justicifation of Admission Dx: Justifications for Admission: Justification of Admission Dx: Comment: (Suicidal ideation) DARY PARKINSON MD Dec 05, 2020 14:43
[2020-12-05 14:50] VITALS: BP 134/77
[2020-12-05] MEDS: ALPRAZolam 0.5 MG TABLET PO PRN (18:28)
[2020-12-05 18:59] VITALS: BP 127/87
[2020-12-05] MEDS: DIVALPROEX EXTENDED RELEASE 500 MG TAB.ER.24H. PO SCH (20:27)
[2020-12-05] MEDS: QUEtiapine 100 MG TABLET. PO SCH (20:28)
[2020-12-05 23:00] VITALS: BP 123/81
[2020-12-06 03:00] VITALS: BP 131/67
[2020-12-06 07:00] VITALS: BP 113/73
[2020-12-06] MEDS: ALPRAZolam 0.5 MG TABLET PO PRN ×3 (08:04→23:40)
[2020-12-06] MEDS: CITALOPRAM 20 MG TABLET. PO SCH (08:04)
--- NOTE | 2020-12-06 10:30 | PDOC ---
PROGRESS NOTES Date of Service: DATE: 12/06/20 TIME: 10:30 Chief Complaint Chief Complaint Suicidal ideation -with an active plan to shoot himself. Patient is not safe to discharge home in the care of his family as he has previously attempted suicide and had multiple inpatient psychiatric placements. Methamphetamine abuse -not currently active. Alcohol abuse -currently heavily drinking. Will monitor for withdrawal symptoms as needed Ativan. Bipolar disorder with depression -we will continue home medications FEN - General diet PPX - Ambulatory FULL CODE DIspo - inpatient for safety due to suicidal ideation and active plan to shoot himself he is not safe for discharge. History of Present Illness History of Present Illness History of Present Illness Mr Rosales is a 30 year old male with a history of bipolar disorder, aspergers, polysubstance abuse, ETOH abuse, history of suicide attempts who is presenting to the ED today complaining of suicidal ideation. Tells nursing staff nurse practitioner myself that he has a gun at home and he is thinking of killing himself. He called [facility] where he has been admitted for similar symptoms and they instructed him to come to the nearest ED because they did not have a bed for admission and require COVID-19 testing. Very anxious in ED. Labs within normal limits. Tox screen negative. Patient is currently on 1:1 EKG sinus rhythm HR 62 no STEMI Nurse psych liaison can arrange placement inpatient psych once COVID 19 testing is negative. Admitted for further observation for his own safety given he expressed a suicide plan. 12/05: Still having 50-50 suicidal ideation overall he does not seem to be dep ressed but he is very upfront alone how much he drinks and the drugs he uses in order to cope with his depression. We will wait for case management for disposition 12/06: No acute events reported overnight, case discussed with nursing staff patient in no acute distress no complaints during my visit Vitals Vitals Vital Signs Date Time Temp Pulse Resp B/P (MAP) Pulse Ox O2 Delivery O2 Flow Rate FiO2 12/06/20 08:00 Room Air 12/06/20 07:00 98.1 51 18 113/73 (86) 99 98.1 Physical Exam General: Alert, Oriented X3, Cooperative, mild distress Heart: Regular rate, Normal S1, Normal S2 Lungs: Clear Abdomen: Normal bowel sounds, Soft Extremities: No clubbing, No cyanosis Skin: No rashes, No breakdown Assessment and Plan Assessmemt and Plan Problems Medical Problems: (1) Suicidal ideations Status: Acute Comment Review of Relevant I have reviewed the following items leyla (where applicable) has been applied. Labs Laboratory Tests Test 12/04/20 16:05 12/04/20 18:10 Urine Collection Type Void Urine Color Shira Urine Clarity Clear Urine pH 6.5 (<5.0-8.0) Urine Specific [place] 1.025 (1.000-1.030) Urine Protein Negative mg/dL (NEG-TRACE) Urine Glucose (UA) Negative mg/dL (NEG) Urine Ketones (Stick) Trace mg/dL (NEG) Urine Blood Negative (NEG) Urine Nitrite Negative (NEG) Urine Bilirubin Negative (NEG) Urine Urobilinogen Dipstick 1.0 mg/dL (0.2 mg/dL) Urine Leukocyte Esterase Negative (NEG) Urine RBC 0 /HPF (0-2) Urine WBC 1-4 /HPF (0-4) Urine Squamous Epithelial Cells Occ /LPF Urine Bacteria Few /HPF (0-FEW) Urine Mucus Mod /LPF Urine Opiates Screen Neg (NEG) Urine Methadone Screen Neg (NEG) Urine Barbiturates Neg (NEG) Urine Phencyclidine Screen Neg (NEG) Urine Amphetamine/Methamphetamine Neg (NEG) Urine Benzodiazepines Screen Neg (NEG) Urine Cocaine Screen Neg (NEG) Urine Cannabinoids Screen Neg (NEG) Urine Ethyl Alcohol Neg (NEG) White Blood Count 6.5 x10^3/uL (4.0-11.0) Red Blood Count 4.84 x10^6/uL (4.30-5.70) Hemoglobin 15.5 g/dL (13.0-17.5) Hematocrit 43.9 % (39.0-53.0) Mean Corpuscular Volume 91 fL (79-100) Mean Corpuscular Hemoglobin 32 pg (25-35) Mean Corpuscular Hemoglobin Concent 35 g/dL (31-37) Red Cell Distribution Width 13.5 % (11.5-14.5) Platelet Count 243 x10^3/uL (140-400) Neutrophils (%) (Auto) 62 % (31-73) Lymphocytes (%) (Auto) 27 % (24-48) Monocytes (%) (Auto) 8 % (0-9) Eosinophils (%) (Auto) 2 % (0-3) Basophils (%) (Auto) 1 % (0-3) Neutrophils # (Auto) 4.0 x10^3/uL (1.8-7.7) Lymphocytes # (Auto) 1.8 x10^3/uL (1.0-4.8) Monocytes # (Auto) 0.5 x10^3/uL (0.0-1.1) Eosinophils # (Auto) 0.1 x10^3/uL (0.0-0.7) Basophils # (Auto) 0.1 x10^3/uL (0.0-0.2) Sodium Level 140 mmol/L (136-145) Potassium Level 4.4 mmol/L (3.5-5.1) Chloride Level 104 mmol/L (98-107) Carbon Dioxide Level 28 mmol/L (21-32) Anion Gap 8 (6-14) Blood Urea Nitrogen 11 mg/dL (8-26) Creatinine 0.9 mg/dL (0.7-1.3) Estimated GFR (Cockcroft-Gault) 99.8 BUN/Creatinine Ratio 12 (6-20) Glucose Level 91 mg/dL (70-99) Calcium Level 9.2 mg/dL (8.5-10.1) Total Bilirubin 0.8 mg/dL (0.2-1.0) Aspartate Amino Transf (AST/SGOT) 20 U/L (15-37) Alanine Aminotransferase (ALT/SGPT) 37 U/L (16-63) Alkaline Phosphatase 63 U/L (46-116) Total Protein 7.3 g/dL (6.4-8.2) Albumin 4.0 g/dL (3.4-5.0) Albumin/Globulin Ratio 1.2 (1.0-1.7) Lipase 160 U/L (73-393) Salicylates Level < 2.8 mg/dL (2.8-20.0) Salicylate Last Dose Date Unk Salicylate Last Dose Time Unk Acetaminophen Level < 2 mcg/ml (10-30) Acetaminophen Last Dose Date Unk Acetaminophen Last Dose Time Unk Ethyl Alcohol Level < 10 mg/dL (0-10) Coronavirus (PCR) Not detected (Not Detected) SARS-CoV-2 Antigen (Rapid) Negative (NEGATIVE) Medications Current Medications Furosemide (Lasix) 40 mg 1X ONCE IVP ; Start 12/04/20 at 15:30; Stop 12/04/20 at 15:31; Status Cancel Citalopram Hydrobromide (CeleXA) 40 mg DAILY PO Last administered on 12/06/20at 08:04; Start 12/05/20 at 09:00 Quetiapine Fumarate (SEROquel) 200 mg QHS PO Last administered on 12/05/20at 20:28; Start 12/04/20 at 21:00 Ondansetron HCl (Zofran) 4 mg PRN Q4HRS PRN IV NAUSEA/VOMITING; Start 12/04/20 at 18:45 Acetaminophen (Tylenol) 650 mg PRN Q4HRS PRN PO TEMP OVER 100.4F OR MILD PAIN; Start 12/04/20 at 18:45 Lorazepam (Ativan) 0.5 mg PRN Q4HRS PRN PO ANXIETY / AGITATION Last administered on 12/05/20at 16:14; Start 12/04/20 at 18:45; Stop 12/05/20 at 16:45; Status DC Divalproex Sodium (Depakote Er) 1,500 mg HS PO Last administered on 12/05/20at 20:27; Start 12/04/20 at 22:30 Alprazolam (Xanax) 0.5 mg PRN Q8HRS PRN PO ANXIETY / AGITATION Last administered on 12/06/20at 08:04; Start 12/05/20 at 16:45 Active Scripts Active Reported Escitalopram Oxalate 20 Mg Tablet 1 Tab PO DAILY 90 Days Divalproex Sodium Er (Divalproex Sodium) 500 Mg Tab.er.24h 1,500 Mg PO DAILY 30 Days Quetiapine Fumarate 200 Mg Tablet 1 Tab PO QHS 90 Days Vitals/I & O Vital Sign - Last 24 Hours 12/05/20 12/05/20 12/05/20 12/05/20 10:35 14:50 18:59 20:00 Temp 96.7 96.7 97.6 96.7 96.7 97.6 Pulse 72 69 71 Resp 16 16 17 B/P (MAP) 140/87 (104) 134/77 (96) 127/87 (100) Pulse Ox 96 96 97 O2 Delivery Room Air Room Air Room Air Room Air 12/05/20 12/06/20 12/06/20 12/06/20 23:00 03:00 07:00 08:00 Temp 97.5 98.1 97.5 98.1 Pulse 76 76 51 Resp 17 18 18 B/P (MAP) 123/81 (95) 131/67 (88) 113/73 (86) Pulse Ox 97 96 99 O2 Delivery Room Air Room Air Room Air Room Air Intake and Output 12/05/20 12/05/20 12/06/20 15:00 23:00 07:00 Intake Total 480 ml 740 ml Balance 480 ml 740 ml Justicifation of Admission Dx: Justifications for Admission: Justification of Admission Dx: Comment: (Suicidal ideation) DARY PARKINSON MD Dec 06, 2020 10:30
[2020-12-06 11:00] VITALS: BP 112/70
--- NOTE | 2020-12-06 11:02 | PDOC3 ---
Discharge Summary Visit Information Date of Admission: Dec 04, 2020 Date of Discharge: Dec 06, 2020 Admitting Diagnosis Comment: Suicidal ideation -with an active plan to shoot himself. Patient is not safe to discharge home in the care of his family as he has previously attempted suicide and had multiple inpatient psychiatric placements. Methamphetamine abuse -not currently active. Alcohol abuse -currently heavily drinking. Will monitor for withdrawal symptoms as needed Ativan. Bipolar disorder with depression -we will continue home medications Final Diagnosis Problems Medical Problems: (1) Suicidal ideations Status: Acute Suicidal ideation -with an active plan to shoot himself. Patient is not safe to discharge home in the care of his family as he has previously attempted suicide and had multiple inpatient psychiatric placements. Methamphetamine abuse -not currently active. Alcohol abuse -currently heavily drinking. Will monitor for withdrawal symptoms as needed Ativan. Bipolar disorder with depression -we will continue home medications Brief Hospital Course Allergies Allergies Coded Allergies Type Severity Reaction Last Updated Verified No Known Drug Allergies 03/28/14 No Vital Signs Vital Signs Date Time Temp Pulse Resp B/P (MAP) Pulse Ox O2 Delivery O2 Flow Rate FiO2 12/06/20 08:00 Room Air 12/06/20 07:00 98.1 51 18 113/73 (86) 99 98.1 Lab Results Laboratory Tests Test 12/04/20 16:05 12/04/20 18:10 Urine Collection Type Void Urine Color Shira Urine Clarity Clear Urine pH 6.5 (<5.0-8.0) Urine Specific [place] 1.025 (1.000-1.030) Urine Protein Negative mg/dL (NEG-TRACE) Urine Glucose (UA) Negative mg/dL (NEG) Urine Ketones (Stick) Trace mg/dL (NEG) Urine Blood Negative (NEG) Urine Nitrite Negative (NEG) Urine Bilirubin Negative (NEG) Urine Urobilinogen Dipstick 1.0 mg/dL (0.2 mg/dL) Urine Leukocyte Esterase Negative (NEG) Urine RBC 0 /HPF (0-2) Urine WBC 1-4 /HPF (0-4) Urine Squamous Epithelial Cells Occ /LPF Urine Bacteria Few /HPF (0-FEW) Urine Mucus Mod /LPF Urine Opiates Screen Neg (NEG) Urine Methadone Screen Neg (NEG) Urine Barbiturates Neg (NEG) Urine Phencyclidine Screen Neg (NEG) Urine Amphetamine/Methamphetamine Neg (NEG) Urine Benzodiazepines Screen Neg (NEG) Urine Cocaine Screen Neg (NEG) Urine Cannabinoids Screen Neg (NEG) Urine Ethyl Alcohol Neg (NEG) White Blood Count 6.5 x10^3/uL (4.0-11.0) Red Blood Count 4.84 x10^6/uL (4.30-5.70) Hemoglobin 15.5 g/dL (13.0-17.5) Hematocrit 43.9 % (39.0-53.0) Mean Corpuscular Volume 91 fL (79-100) Mean Corpuscular Hemoglobin 32 pg (25-35) Mean Corpuscular Hemoglobin Concent 35 g/dL (31-37) Red Cell Distribution Width 13.5 % (11.5-14.5) Platelet Count 243 x10^3/uL (140-400) Neutrophils (%) (Auto) 62 % (31-73) Lymphocytes (%) (Auto) 27 % (24-48) Monocytes (%) (Auto) 8 % (0-9) Eosinophils (%) (Auto) 2 % (0-3) Basophils (%) (Auto) 1 % (0-3) Neutrophils # (Auto) 4.0 x10^3/uL (1.8-7.7) Lymphocytes # (Auto) 1.8 x10^3/uL (1.0-4.8) Monocytes # (Auto) 0.5 x10^3/uL (0.0-1.1) Eosinophils # (Auto) 0.1 x10^3/uL (0.0-0.7) Basophils # (Auto) 0.1 x10^3/uL (0.0-0.2) Sodium Level 140 mmol/L (136-145) Potassium Level 4.4 mmol/L (3.5-5.1) Chloride Level 104 mmol/L (98-107) Carbon Dioxide Level 28 mmol/L (21-32) Anion Gap 8 (6-14) Blood Urea Nitrogen 11 mg/dL (8-26) Creatinine 0.9 mg/dL (0.7-1.3) Estimated GFR (Cockcroft-Gault) 99.8 BUN/Creatinine Ratio 12 (6-20) Glucose Level 91 mg/dL (70-99) Calcium Level 9.2 mg/dL (8.5-10.1) Total Bilirubin 0.8 mg/dL (0.2-1.0) Aspartate Amino Transf (AST/SGOT) 20 U/L (15-37) Alanine Aminotransferase (ALT/SGPT) 37 U/L (16-63) Alkaline Phosphatase 63 U/L (46-116) Total Protein 7.3 g/dL (6.4-8.2) Albumin 4.0 g/dL (3.4-5.0) Albumin/Globulin Ratio 1.2 (1.0-1.7) Lipase 160 U/L (73-393) Salicylates Level < 2.8 mg/dL (2.8-20.0) Salicylate Last Dose Date Unk Salicylate Last Dose Time Unk Acetaminophen Level < 2 mcg/ml (10-30) Acetaminophen Last Dose Date Unk Acetaminophen Last Dose Time Unk Ethyl Alcohol Level < 10 mg/dL (0-10) Coronavirus (PCR) Not detected (Not Detected) SARS-CoV-2 Antigen (Rapid) Negative (NEGATIVE) Brief Hospital Course History of Present Illness Mr Rosales is a 30 year old male with a history of bipolar disorder, aspergers, polysubstance abuse, ETOH abuse, history of suicide attempts who is presenting to the ED today complaining of suicidal ideation. Tells nursing staff nurse practitioner myself that he has a gun at home and he is thinking of killing himself. He called [facility] where he has been admitted for similar symptoms and they instructed him to come to the nearest ED because they did not have a bed for admission and require COVID-19 testing. Very anxious in ED. Labs within normal limits. Tox screen negative. Patient is currently on 1:1 EKG sinus rhythm HR 62 no STEMI Nurse psych liaison can arrange placement inpatient psych once COVID 19 testing is negative. Admitted for further observation for his own safety given he expressed a suicide plan. 2/4: Still having 50-50 suicidal ideation overall he does not seem to be depressed but he is very upfront alone how much he drinks and the drugs he uses in order to cope with his depression. We will wait for case management for disp osition. 2/5: No medical problems and he is able to transition to inpatient psych when bed available. [facility] has a bed apparently at [facility] hopefully he gets there later in the day. Assessment Assessment Physical Exam General: Alert, Oriented X3, Cooperative, mild distress Heart: Regular rate, Normal S1, Normal S2 Lungs: Clear Abdomen: Normal bowel sounds, Soft Extremities: No clubbing, No cyanosis Skin: No rashes, No breakdown Discharge Information Follow Up: Weeks Disposition/Orders: D/C to Home Scheduled Divalproex Sodium (Divalproex Sodium Er) 500 Mg Tab.er.24h, 1,500 MG PO DAILY for Bipolar disorder for 30 Days, #90 Ref 3 (Reported) Entered as Reported by: LEANA JOHN MD on 12/04/201728 Last Action: Continued on 12/04/202228 by TRENT CARTER Escitalopram Oxalate (Escitalopram Oxalate) 20 Mg Tablet, 1 TAB PO DAILY for Bipolar depression for 90 Days, #90 (Reported) Entered as Reported by: LEANA JOHN MD on 12/04/201728 Last Action: Converted on 12/04/201844 by LEANA JOHN MD Quetiapine Fumarate (Quetiapine Fumarate) 200 Mg Tablet, 1 TAB PO QHS for Bipolar disorder for 90 Days, #90 Ref 3 (Reported) Entered as Reported by: LEANA JOHN MD on 12/04/201728 Last Action: Converted on 12/04/201844 by LEANA JOHN MD Justicifation of Admission Dx: Justifications for Admission: Justification of Admission Dx: Comment: (Suicidal ideation) DARY PARKINSON MD Dec 06, 2020 11:02
[2020-12-06 15:00] VITALS: BP 133/93
--- NOTE | 2020-12-06 16:37 | NUR ---
12/04/2020 at 2000 CIWA Score was 2 D/T Mild anxiety and Minimal sweating 12/06/2020 at 1627 CIWA Score was 4 D/T Mod anxiety Results were discussed with Staff at [facility]
[2020-12-06 17:21] LABS: VAL ACID 85 mcg/mL (50-100)
[2020-12-06 18:51] VITALS: BP 134/77
[2020-12-06] MEDS: QUEtiapine 100 MG TABLET. PO SCH (21:32)
[2020-12-06] MEDS: DIVALPROEX EXTENDED RELEASE 500 MG TAB.ER.24H. PO SCH (21:32)
[2020-12-06 23:02] VITALS: BP 125/73
--- NOTE | 2020-12-07 00:43 | NUR ---
Patient accepted at [facility]. Report given to Aspen TRUJILLO at [facility]. EMS here to transport patient at 0015. Discharge packet given to EMS. Patients belongings bagged and given to EMS.
== END 2020-12-07 00:15 | DRG 885 ==
LOC: ER 14:33 → 6 SOUTH 17:11 → OBSVTOIN 17:23
PROVIDERS: ADMIT Internal Medicine; ATTEND Internal Medicine
DX: F31.9 Bipolar disorder, unspecified (principal); R45.851 Suicidal ideations; F15.10 Other stimulant abuse, uncomplicated; F10.10 Alcohol abuse, uncomplicated; F41.9 Anxiety disorder, unspecified; Z20.822 Contact with and (suspected) exposure to COVID-19; Z91.5 Personal history of self-harm; Z81.8 Family history of other mental and behavioral disorders
CPT/HCPCS: 36415; 80053; 80164; 80307; 80329; 81001; 83690; 85025; 87426; 93005; 99285; G0379; G0480; U0003; G0378

== ENCOUNTER 2021-05-29 20:31 | Emergency (ER) | payer OTHER ==
[~2021-05-29] VITALS: Ht 172.7 cm; Wt 86.3 kg
[~2021-05-29 20:31] MED LIST: DIVA500T17 PO; ESCI20TA8 PO; QUET200T2 PO
--- NOTE | 2021-05-29 21:33 | ED.ADGEN ---
Past Medical History Past Medical History: Bipolar, Other Additional Past Medical Histor: aspbergers, bipolar, anxiety, SI, Suicide attempts Past Surgical History: No Surgical History Additional Past Surgical Histo: gastric reflux as infant Smoking Status: Current Some Day Smoker Alcohol Use: Occasionally Additional Information: oce or twice a week per pt Drug Use: Cocaine, Methamphetamine, Other Social History Narrative: last cocain 1 week ago,xanax, "acid" "mushrooms" "pain pills" "oxy" General Adult EDM: Chief Complaint: SUICDAL IDEATION HPI: HPI: Patient is a 31 year old male coming in for suicide attempt. Mom caught him trying to strangle himself with a telephone cord. Patient states no specific triggers but says he has been more depressed. Patient states he had multiple suicide attempts in the past. Patient is to take his Ritalin today but has not been taking suppressive medications. States he otherwise been well. Not has Covid vaccine Review of Systems: Review of Systems: All other systems within normal limits except for as noted in the HPI Current Medications: Current Medications Medications (Trade) Dose Ordered Sig/Benny Start Time Stop Time Status Last Admin Dose Admin Hydroxyzine HCl (Atarax) 25 mg PRN Q6HRS PRN 05/30/21 00:30 05/30/21 02:01 25 MG Lorazepam (Ativan) 1 mg 1X ONCE 05/30/21 04:00 05/30/21 04:01 DC 05/30/21 04:03 1 MG Allergies: Allergies: Allergies Coded Allergies Type Severity Reaction Last Updated Verified No Known Drug Allergies 03/28/14 No Physical Exam: PE: Constitutional: Well developed, well nourished, no acute distress, non-toxic appearance. [] HENT: Normocephalic, atraumatic, bilateral external ears normal, nose normal. [] Eyes: PERRLA, conjunctiva normal, no discharge. [] Neck: No rigidity, supple, no stridor. [] Cardiovascular: Regular rate and rhythm, brisk cap refill [] Lungs & Thorax: Non labored symmetric respirations, no tachypnea or respiratory distress [] Abdomen: Soft, nondistended. Skin: Warm, dry, no erythema, no rash. [] Back: Unremarkable Extremities: No deformities, range of motion grossly intact, no lower extremity edema [] Neurologic: Alert and oriented X 3, no focal deficits noted. [] Psychologic: Organized thinking, flat affect Current Patient Data: Labs: Laboratory Tests Test 05/29/21 21:20 05/29/21 21:50 05/29/21 21:52 White Blood Count 10.7 x10^3/uL (4.0-11.0) Red Blood Count 4.96 x10^6/uL (4.30-5.70) Hemoglobin 15.3 g/dL (13.0-17.5) Hematocrit 43.4 % (39.0-53.0) Mean Corpuscular Volume 88 fL (79-100) Mean Corpuscular Hemoglobin 31 pg (25-35) Mean Corpuscular Hemoglobin Concent 35 g/dL (31-37) Red Cell Distribution Width 13.4 % (11.5-14.5) Platelet Count 356 x10^3/uL (140-400) Neutrophils (%) (Auto) 69 % (31-73) Lymphocytes (%) (Auto) 18 % (24-48) L Monocytes (%) (Auto) 8 % (0-9) Eosinophils (%) (Auto) 5 % (0-3) H Basophils (%) (Auto) 1 % (0-3) Neutrophils # (Auto) 7.3 x10^3/uL (1.8-7.7) Lymphocytes # (Auto) 1.9 x10^3/uL (1.0-4.8) Monocytes # (Auto) 0.8 x10^3/uL (0.0-1.1) Eosinophils # (Auto) 0.6 x10^3/uL (0.0-0.7) Basophils # (Auto) 0.1 x10^3/uL (0.0-0.2) Sodium Level 135 mmol/L (136-145) L Potassium Level 4.5 mmol/L (3.5-5.1) Chloride Level 101 mmol/L (98-107) Carbon Dioxide Level 29 mmol/L (21-32) Anion Gap 5 (6-14) L Blood Urea Nitrogen 13 mg/dL (8-26) Creatinine 1.1 mg/dL (0.7-1.3) Estimated GFR (Cockcroft-Gault) 78.6 BUN/Creatinine Ratio 12 (6-20) Glucose Level 106 mg/dL (70-99) H Calcium Level 9.5 mg/dL (8.5-10.1) Total Bilirubin 0.2 mg/dL (0.2-1.0) Aspartate Amino Transferase (AST) 18 U/L (15-37) Alanine Aminotransferase (ALT) 56 U/L (16-63) Alkaline Phosphatase 95 U/L (46-116) Total Protein 7.7 g/dL (6.4-8.2) Albumin 4.0 g/dL (3.4-5.0) Albumin/Globulin Ratio 1.1 (1.0-1.7) Salicylates Level < 2.8 mg/dL (2.8-20.0) L Salicylate Last Dose Date Unk Salicylate Last Dose Time Unk Acetaminophen Level < 2 mcg/ml (10-30) L Acetaminophen Last Dose Date Unk Acetaminophen Last Dose Time Unk Ethyl Alcohol Level < 10 mg/dL (0-10) Urine Collection Type Unknown Urine Color Yellow Urine Clarity Clear Urine pH 7.5 (<5.0-8.0) Urine Specific [place] 1.015 (1.000-1.030) Urine Protein Negative mg/dL (NEG-TRACE) Urine Glucose (UA) Negative mg/dL (NEG) Urine Ketones (Stick) Negative mg/dL (NEG) Urine Blood Negative (NEG) Urine Nitrite Negative (NEG) Urine Bilirubin Negative (NEG) Urine Urobilinogen Dipstick 0.2 mg/dL (0.2 mg/dL) Urine Leukocyte Esterase Negative (NEG) Urine RBC 0 /HPF (0-2) Urine WBC Occ /HPF (0-4) Urine Squamous Epithelial Cells Occ /LPF Urine Bacteria 0 /HPF (0-FEW) Urine Opiates Screen Neg (NEG) Urine Methadone Screen Neg (NEG) Urine Barbiturates Neg (NEG) Urine Phencyclidine Screen Neg (NEG) Urine Amphetamine/Methamphetamine Neg (NEG) Urine Benzodiazepines Screen Pos (NEG) Urine Cocaine Screen Neg (NEG) Urine Cannabinoids Screen Neg (NEG) Urine Ethyl Alcohol Neg (NEG) SARS-CoV-2 Antigen (Rapid) Negative (NEGATIVE) Laboratory Tests 05/29/21 21:20 Laboratory Tests 05/29/21 21:20 Vital Signs: Vital Signs Date Time Temp Pulse Resp B/P (MAP) Pulse Ox O2 Delivery O2 Flow Rate FiO2 05/30/21 05:00 81 13 118/64 (82) 96 Room Air 05/29/21 20:53 98.2 98.2 EKG: EKG: [] Heart Score: C/O Chest Pain: No Risk Factors: Risk Factors: DM, Current or recent (<one month) smoker, HTN, HLP, family history of CAD, obesity. Risk Scores: Score 0 - 3: 2.5% MACE over next 6 weeks - Discharge Home Score 4 - 6: 20.3% MACE over next 6 weeks - Admit for Clinical Observation Score 7 - 10: 72.7% MACE over next 6 weeks - Early Invasive Strategies Radiology/Procedures: Radiology/Procedures: [] Course & Med Decision Making: Course & Med Decision Making Pertinent Labs and Imaging studies reviewed. (See chart for details) PAT evaluation, will try to place inpatient. Accepted to [facility] by Dr Brewer [] Adriana Disclaimer: Adriana Disclaimer: This electronic medical record was generated, in whole or in part, using a voice recognition dictation system. Departure Departure Impression: Primary Impression: Suicidal ideations [facility] Condition: STABLE Referrals: NO PCP (PCP) REYMUNDO FORD MD May 29, 2021 21:33
[2021-05-29 21:37] LABS: BASO # 0.1 x10^3/uL (0.0-0.2); BASO % 1 % (0-3); EOS # 0.6 x10^3/uL (0.0-0.7); EOS % 5 % (0-3); HEMATOCRIT 43.4 % (39.0-53.0); HEMOGLOBIN 15.3 g/dL (13.0-17.5); LYMPH # 1.9 x10^3/uL (1.0-4.8); LYMPH % 18 % (24-48); MEAN CORPUSCULAR HEMOGLOBIN 31 pg (25-35); MEAN CORPUSCULAR HGB CONC 35 g/dL (31-37); MEAN CORPUSCULAR VOLUME 88 fL (79-100); MONO # 0.8 x10^3/uL (0.0-1.1); MONO % 8 % (0-9); NEUT # 7.3 x10^3/uL (1.8-7.7); NEUT % 69 % (31-73); PLATELET COUNT 356 x10^3/uL (140-400); RED BLOOD COUNT 4.96 x10^6/uL (4.30-5.70); RED CELL DISTRIBUTION WIDTH 13.4 % (11.5-14.5); WHITE BLOOD COUNT 10.7 x10^3/uL (4.0-11.0)
[2021-05-29 21:49] LABS: CALCIUM 9.5 mg/dL (8.5-10.1); CREATININE 1.1 mg/dL (0.7-1.3); GFR 78.6; POTASSIUM 4.5 mmol/L (3.5-5.1)
[2021-05-29 21:54] LABS: ALBUMIN/GLOBULIN RATIO 1.1 (1.0-1.7); TOTAL BILIRUBIN 0.2 mg/dL (0.2-1.0); TOTAL PROTEIN 7.7 g/dL (6.4-8.2)
[2021-05-29 21:55] LABS: ETHANOL < 10 mg/dL (0-10); SALIC < 2.8 mg/dL (2.8-20.0)
[2021-05-29 21:56] LABS: ACETAMIN < 2 mcg/ml (10-30)
[2021-05-29 22:05] LABS: BILIRUBIN,URINE NEGATIVE (NEG); CLARITY,URINE CLEAR; COLOR,URINE YELLOW; NITRITE,URINE NEGATIVE (NEG); PH,URINE 7.5 (<5.0-8.0); PROTEIN,URINE NEGATIVE (NEG-TRACE); UROBILINOGEN,URINE 0.2 mg/dL (0.2 mg/dL)
[2021-05-29 22:12] LABS: BARBITURATES NEG (NEG); BENZODIAZEPINES POS (NEG); CANNABINOIDS NEG (NEG); COCAINE NEG (NEG); METHADONE NEG (NEG); OPIATES NEG (NEG); PHENCYCLIDINE NEG (NEG)
[2021-05-29 22:14] LABS: BACTERIA,URINE 0 /HPF (0-FEW); RBC,URINE 0 /HPF (0-2); WBC,URINE OCC /HPF (0-4)
[2021-05-29 22:20] LABS: AMPHETAMINE/METHAMPHETAMINE NEG (NEG)
[2021-05-30] MEDS ORDERED: hydrOXYzine 25 MG TABLET PO PRN (00:30)
--- NOTE | 2021-05-30 01:39 | EKG ---
[facility] [address] [place] [address] Test Date: 2021-05-29 Test Time: 21:50:46 Pat Name: PHILIPPE BRANCH Department: Room: Gender: M Hotel Maintenance Technician: : 1990 Requested By: REYMUNDO FORD Order Number: [id number] Reading MD: Measurements Intervals [place] Rate: 97 P: 12 AL: 142 QRS: 11 QRSD: 90 T: 1 QT: 338 QTc: 433 Interpretive Statements SINUS RHYTHM NORMAL ECG RI6.02 No previous ECG available for comparison
[2021-05-30 06:30] VITALS: BP 111/62
== END 2021-05-30 06:35 ==
LOC: ER 20:31
DX: U07.1 COVID-19 (principal); R45.851 Suicidal ideations; F31.9 Bipolar disorder, unspecified; F17.200 Nicotine dependence, unspecified, uncomplicated
CPT/HCPCS: 36415; 80053; 80307; 80329; 81001; 85025; 87426; 93005; 99285; G0480; U0003; U0005

== ENCOUNTER 2022-02-19 | Emergency (ER) | payer OTHER ==
[~2022-02-19] VITALS: Ht 172.7 cm; Wt 80.0 kg
[2022-02-19 00:41] LABS: BASO # 0.1 x10^3/uL (0.0-0.2); BASO % 1 % (0-3); EOS # 0.2 x10^3/uL (0.0-0.7); EOS % 3 % (0-3); HEMATOCRIT 41.2 % (39.0-53.0); HEMOGLOBIN 14.4 g/dL (13.0-17.5); LYMPH # 2.6 x10^3/uL (1.0-4.8); LYMPH % 37 % (24-48); MEAN CORPUSCULAR HEMOGLOBIN 32 pg (25-35); MEAN CORPUSCULAR HGB CONC 35 g/dL (31-37); MEAN CORPUSCULAR VOLUME 91 fL (79-100); MONO # 0.6 x10^3/uL (0.0-1.1); MONO % 8 % (0-9); NEUT # 3.5 x10^3/uL (1.8-7.7); NEUT % 50 % (31-73); PLATELET COUNT 258 x10^3/uL (140-400); RED BLOOD COUNT 4.55 x10^6/uL (4.30-5.70); RED CELL DISTRIBUTION WIDTH 14.2 % (11.5-14.5); WHITE BLOOD COUNT 6.9 x10^3/uL (4.0-11.0)
--- NOTE | 2022-02-19 00:43 | PHYS DOC ---
Past Medical History Past Medical History: Anxiety, Bipolar, Other Additional Past Medical Histor: aspbergers, bipolar, anxiety, SI, Suicide attempts (RAYSHAWN VILLATORO Kenneth PHOTO LAB SPECIALIST) Past Surgical History: No Surgical History Additional Past Surgical Histo: gastric reflux as (RAYSHAWN VILLATORO PHOTO LAB SPECIALIST) Smoking Status: Current Some Day Smoker Alcohol Use: Occasionally Drug Use: Cocaine, Methamphetamine, Other (RAYSHAWN VILLATORO PHOTO LAB SPECIALIST) General Adult EDM: Chief Complaint: SUICDAL IDEATION HPI: HPI: Patient is a 32 year old male with history of bipolar, Asperger's, anxiety presenting to the ED today to be evaluated for suicidal ideations. Patient states for the last 1-1/2 weeks he has had suicidal ideations. He states he does not have a plan. He states he has been depressed lately has been drinking heavily to try and "numb up" the pain. Denies any homicidal ideations. Denies any abdominal pain, nausea or vomiting. He states he has been at several psych facilities including [facility] for suicidal ideations. (RAYSHAWN VILLATORO PHOTO LAB SPECIALIST) Review of Systems: Review of Systems: Constitutional: Denies fever or chills. [] Eyes: Denies change in visual acuity. [] HENT: Denies nasal congestion or sore throat. [] Respiratory: Denies cough or shortness of breath. [] Cardiovascular: Denies chest pain or edema. [] GI: Denies abdominal pain, nausea, vomiting, bloody stools or diarrhea. [] : Denies dysuria. [] Musculoskeletal: Denies back pain or joint pain. [] Integument: Denies rash. [] Neurologic: Denies headache, focal weakness or sensory changes. [] Endocrine: Denies polyuria or polydipsia. [] Lymphatic: Denies swollen glands. [] Psychiatric: Reports suicidal ideation (RAYSHAWN VILLATORO Kenneth PHOTO LAB SPECIALIST) Heart Score: C/O Chest Pain: N/A Risk Factors: Risk Factors: DM, Current or recent (<one month) smoker, HTN, HLP, family history of CAD, obesity. Risk Scores: Score 0 - 3: 2.5% MACE over next 6 weeks - Discharge Home Score 4 - 6: 20.3% MACE over next 6 weeks - Admit for Clinical Observation Score 7 - 10: 72.7% MACE over next 6 weeks - Early Invasive Strategies (RAYSHAWN VILLATORO APRN) C/O Chest Pain: No (REYMUNDO ORNELAS MD) Current Medications: Current Medications Medications (Trade) Dose Ordered Sig/Benny Start Time Stop Time Status Last Admin Dose Admin Multivitamins 10 ml/Thiamine HCl 100 mg/Folic Acid 1 mg/Sodium Chloride 1,011.2 ml @ 1,000 mls/ hr 1X ONCE 02/19/22 01:00 02/19/22 02:00 (RAYSHAWN VILLATORO APRN) Allergies: Allergies: Allergies Coded Allergies Type Severity Reaction Last Updated Verified No Known Drug Allergies 03/28/14 No (RAYSHAWN VILLATORO APRN) Physical Exam: PE: Constitutional: Well developed, well nourished, no acute distress, non-toxic appearance. [] HENT: Normocephalic, atraumatic, bilateral external ears normal, oropharynx moist, no oral exudates, nose normal. [] Eyes: PERRLA, EOMI, conjunctiva normal, no discharge. [] Neck: Normal range of motion, no tenderness, supple, no stridor. [] Cardiovascular:Heart rate regular rhythm, no murmur [] Lungs & Thorax: Bilateral breath sounds clear to auscultation [] Abdomen: Bowel sounds normal, soft, no tenderness, no masses, no pulsatile masses. [] Skin: Warm, dry, no erythema, no rash. [] Back: No tenderness, no CVA tenderness. [] Extremities: No tenderness, no cyanosis, no clubbing, ROM intact, no edema. [] Neurologic: Alert and oriented X 3, normal motor function, normal sensory function, no focal deficits noted. [] Psychologic: Affect normal, judgement normal, mood normal. [] (RAYSHAWN VILLATORO APRN) EKG: EKG: [] (RAYSHAWN VILLATORO APRN) Radiology/Procedures: Radiology/Procedures: [] (RAYSHAWN VILLATORO APRN) Course & Med Decision Making: Course & Med Decision Making Pertinent Labs and Imaging studies reviewed. (See chart for details) This a 32-year-old male patient presented to the ED today to be evaluated for suicidal ideations. Patient has no plan. 1:1 care ordered. [address] Ornelas (RAYSHAWN VILLATORO APRN) Course & Med Decision Making Accepted patient care shift change. Pending medical clearance and PAT evaluation. Patient medically cleared and evaluated by PET. Patient evaluated and will be discharged with a safety plan. Patient agreeable to plan. Requesting medications for anxiety. Patient has followed but has not been pursuing further appointments with [facility] (REYMUNDO ORNELAS MD) Dragon Disclaimer: Dragon Disclaimer: This electronic medical record was generated, in whole or in part, using a voice recognition dictation system. (RAYSHAWN VILLATORO APRN) Departure Departure Impression: Primary Impression: Suicidal ideations Additional Impression: Anxiety Disposition: HOME / SELF CARE / HOMELESS Condition: STABLE Referrals: NO PCP (PCP) Patient Instructions: Suicidal Feelings, How to Help Yourself Scripts Hydroxyzine Hcl (HYDROXYZINE HCL) 25 Mg Tablet 1 TAB PO TID PRN for ANXIETY / AGITATION, #30 TAB Prov: REYMUNDO ORNELAS MD 02/19/22 RAYSHAWN VILLATORO APRN Feb 19, 2022 00:43 REYMUNDO ORNELAS MD Feb 19, 2022 03:25
[2022-02-19 00:53] LABS: CREATININE 0.8 mg/dL (0.7-1.3); GFR 112.8; POTASSIUM 3.8 mmol/L (3.5-5.1)
[2022-02-19 01:00] LABS: ALBUMIN 4.1 g/dL (3.4-5.0); ALBUMIN/GLOBULIN RATIO 1.4 (1.0-1.7); MAGNESIUM 1.8 mg/dL (1.8-2.4); TOTAL BILIRUBIN 0.3 mg/dL (0.2-1.0); TOTAL PROTEIN 7.1 g/dL (6.4-8.2)
[2022-02-19] MEDS ORDERED: MULTIVIT INFUSN,ADULT 4,VIT K 10 ML, THIAMINE INJ 100 MG, FOLIC ACID INJ 1 MG in IV NOR... IV ONE (01:00)
[2022-02-19 01:03] LABS: ACETAMIN < 2 mcg/ml (10-30); ETHANOL 169 mg/dL (0-10); SALIC 0.5 mg/dL (2.8-20.0)
[2022-02-19 01:12] LABS: AMORPHOUS SEDIMENT,UR PRESENT /HPF; BACTERIA,URINE 0 /HPF (0-FEW); BARBITURATES NEG (NEG); BENZODIAZEPINES NEG (NEG); CANNABINOIDS NEG (NEG); COCAINE NEG (NEG); METHADONE NEG (NEG); OPIATES NEG (NEG); PHENCYCLIDINE NEG (NEG); RBC,URINE 0 /HPF (0-2); WBC,URINE 0 /HPF (0-4)
[2022-02-19 01:13] LABS: AMPHETAMINE/METHAMPHETAMINE NEG (NEG)
[2022-02-19] MEDS ORDERED: HYDR25TA PO (03:25)
[2022-02-19 03:50] VITALS: BP 114/66
[2022-02-19] MEDS ORDERED: hydrOXYzine 25 MG TABLET PO ONE (04:00)
== END 2022-02-19 04:12 | disposition home or self-care (01) ==
LOC: ER
DX: R45.851 Suicidal ideations (principal); F41.9 Anxiety disorder, unspecified; F31.9 Bipolar disorder, unspecified; F17.200 Nicotine dependence, unspecified, uncomplicated; Z20.822 Contact with and (suspected) exposure to COVID-19
CPT/HCPCS: 80053; 80307; 80329; 81001; 83690; 83735; 85025; 87426; 96365; 99285; C9803; G0480; J3411; J3490; J7030; U0003

== ENCOUNTER 2022-02-23 15:34 | Emergency (ER) | payer OTHER ==
[~2022-02-23] VITALS: Ht 172.7 cm; Wt 78.5 kg
[~2022-02-23 15:34] MED LIST changes: +HYDR25TA PO
--- NOTE | 2022-02-23 16:20 | PHYS DOC ---
Past Medical History Past Medical History: Anxiety, Bipolar, Other Additional Past Medical Histor: aspbergers, bipolar, anxiety, SI, Suicide attempts Past Surgical History: Other Additional Past Surgical Histo: gastric reflux as Smoking Status: Current Some Day Smoker Alcohol Use: Occasionally Drug Use: Cocaine, Marijuana, Methamphetamine, Other General Adult EDM: Chief Complaint: WITHDRAWL HPI: HPI: Patient is a 32-year-old male who presents today with anxiety and agitation. Patient states around 2:00 today he started feeling very anxious and jittery, he is unsure of why he is feeling like this he believes he is withdrawing from alco hol, but states his last drink was around 2:00 today. Patient also states that he has had some marijuana in the last 24 hours as well. When asked if the patient was suicidal he says he is not sure "he does not want to live like this" but does not have a plan to hurt himself. Patient states that he has a past medical history of bipolar disorder and anxiety, and he states he has not seen any primary care physician or any clinic on a regular basis for management of his medical and psychiatric issues. It was noted in his chart that he was here on February 19, 2022 for suicidal ideation was giving a safety plan, and patient has not followed through on the safety plan. Review of Systems: Review of Systems: Constitutional: Denies fever or chills. [] Eyes: Denies change in visual acuity. [] HENT: Denies nasal congestion or sore throat. [] Respiratory: Denies cough or shortness of breath. [] Cardiovascular: Denies chest pain or edema. [] GI: Denies abdominal pain, nausea, vomiting, bloody stools or diarrhea. [] : Denies dysuria. [] Musculoskeletal: Jitters Integument: Denies rash. [] Neurologic: Denies headache, focal weakness or sensory changes. [] Endocrine: Denies polyuria or polydipsia. [] Lymphatic: Denies swollen glands. [] Psychiatric: anxiety. [] Heart Score: C/O Chest Pain: No Risk Factors: Risk Factors: DM, Current or recent (<one month) smoker, HTN, HLP, family history of CAD, obesity. Risk Scores: Score 0 - 3: 2.5% MACE over next 6 weeks - Discharge Home Score 4 - 6: 20.3% MACE over next 6 weeks - Admit for Clinical Observation Score 7 - 10: 72.7% MACE over next 6 weeks - Early Invasive Strategies Current Medications: Current Medications Medications (Trade) Dose Ordered Sig/Benny Start Time Stop Time Status Last Admin Dose Admin Lorazepam (Ativan) 2 mg 1X ONCE 02/23/22 16:15 02/23/22 16:16 UNV Allergies: Allergies: Allergies Coded Allergies Type Severity Reaction Last Updated Verified No Known Drug Allergies 02/23/22 No Physical Exam: PE: Constitutional: Well developed, well nourished, no acute distress, non-toxic appearance. [] HENT: Normocephalic, atraumatic, bilateral external ears normal, oropharynx moist, no oral exudates, nose normal. [] Eyes: PERRLA, EOMI, conjunctiva normal, no discharge. [] Neck: Normal range of motion, no tenderness, supple, no stridor. [] Cardiovascular:Heart rate regular rhythm, no murmur [] Lungs & Thorax: Bilateral breath sounds clear to auscultation [] Abdomen: Bowel sounds normal, soft, no tenderness, no masses, no pulsatile masses. [] Skin: Warm, dry, no erythema, no rash. [] Back: No tenderness, no CVA tenderness. [] Extremities: No tenderness, no cyanosis, no clubbing, ROM intact, no edema. [] Neurologic: Alert and oriented X 3, normal motor function, normal sensory function, no focal deficits noted, patient is anxiously moving all extremities in a jittering. Psychologic: Affect normal, judgement normal, mood ANXIOUS. [] Current Patient Data: Labs: Laboratory Tests Test 02/23/22 17:45 02/23/22 18:39 White Blood Count 8.5 x10^3/uL Red Blood Count 5.32 x10^6/uL Hemoglobin 16.8 g/dL Hematocrit 48.4 % Mean Corpuscular Volume 91 fL Mean Corpuscular Hemoglobin 32 pg Mean Corpuscular Hemoglobin Concent 35 g/dL Red Cell Distribution Width 14.3 % Platelet Count 338 x10^3/uL Neutrophils (%) (Auto) 66 % Lymphocytes (%) (Auto) 22 % Monocytes (%) (Auto) 10 % Eosinophils (%) (Auto) 1 % Basophils (%) (Auto) 1 % Neutrophils # (Auto) 5.6 x10^3/uL Lymphocytes # (Auto) 1.9 x10^3/uL Monocytes # (Auto) 0.9 x10^3/uL Eosinophils # (Auto) 0.1 x10^3/uL Basophils # (Auto) 0.1 x10^3/uL Sodium Level 138 mmol/L Potassium Level 4.4 mmol/L Chloride Level 103 mmol/L Carbon Dioxide Level 28 mmol/L Anion Gap 7 Blood Urea Nitrogen 11 mg/dL Creatinine 0.9 mg/dL Estimated GFR (Cockcroft-Gault) 98.4 Glucose Level 120 mg/dL Calcium Level 9.3 mg/dL Salicylates Level < 0.2 mg/dL Salicylate Last Dose Date Salicylate Last Dose Time Acetaminophen Level < 2 mcg/ml Acetaminophen Last Dose Date Acetaminophen Last Dose Time Ethyl Alcohol Level < 10 mg/dL Urine Collection Type Unknown Urine Color (Auto) Yellow Urine Turbidity Clear Urine pH (Auto) 6.0 Urine Specific Morral 1.033 Urine Protein (Auto) Negative mg/dL Urine Glucose (Auto)(UA) Negative mg/dL Urine Ketones (Auto) Trace mg/dL Urine Blood (Auto) Negative Urine Nitrite Negative Urine Bilirubin (Auto) Negative Urine Urobilinogen (Auto) Normal mg/dL Urine Leukocyte Esterase (Auto) Negative Urine RBC 0 /HPF Urine WBC 1-4 /HPF Urine Squamous Epithelial Cells Few /LPF Urine Amorphous Sediment Present /HPF Urine Bacteria 0 /HPF Urine Mucus Marked /LPF Urine Opiates Screen Neg Urine Methadone Screen Neg Urine Barbiturates Neg Urine Phencyclidine Screen Neg Urine Amphetamine/Methamphetamine Neg Urine Benzodiazepines Screen Neg Urine Cocaine Screen Neg Urine Cannabinoids Screen Neg Urine Ethyl Alcohol Neg Current Medications Medications (Trade) Dose Ordered Sig/Benny Route PRN Reason Start Time Stop Time Status Last Admin Dose Admin Lorazepam (Ativan) 2 mg 1X ONCE PO 02/23/22 16:30 02/23/22 16:31 DC 02/23/22 16:42 Vital Signs: Vital Signs Date Time Temp Pulse Resp B/P (MAP) Pulse Ox O2 Delivery O2 Flow Rate FiO2 02/23/22 18:31 84 18 159/114 (129) 99 Room Air 02/23/22 18:01 77 18 152/80 (104) 99 Room Air 02/23/22 17:31 86 18 124/83 (97) Room Air 02/23/22 17:15 121/64 (83) 02/23/22 17:15 82 17 97 Room Air 02/23/22 17:01 99 Room Air 02/23/22 16:31 80 18 125/82 (96) 97 Room Air 02/23/22 15:56 98.6 86 22 140/89 (106) 98 Room Air 98.6 EKG: EKG: [] Radiology/Procedures: Radiology/Procedures: [] Course & Med Decision Making: Course & Med Decision Making Pertinent Labs and Imaging studies reviewed. (See chart for details) 1800 I spoke with Estrella from the psychiatric assessment team, she did go in and speak to the patient regarding possible barriers to not seeking treatment for his bipolar disorder and his alcoholism, she went over all resources with patient again and gave him a list of clinics that he could follow-up with. Patient states that he at this time does not have any barriers to following up and he just came here today for a dose of Ativan. Continue to await a urine sample. 0 patient resting quietly in his room, I did inform him that all of his lab results were normal he did not have any alcohol or drugs in his system, I did inform him that he will need to follow-up with his primary care physician clinic listed on his discharge instructions or his own's mental health team for further evaluation and management of his bipolar disorder and his anxiety. Did inform him that I will not give him any Ativan to go home that he will need to follow-up with his primary care for that. Patient verbalized understanding of this and is agreeable with the plan of care. Adriana Disclaimer: Adriana Disclaimer: This electronic medical record was generated, in whole or in part, using a voice recognition dictation system. Departure Departure Impression: Primary Impression: Anxiety Disposition: HOME / SELF CARE / HOMELESS Condition: STABLE Referrals: NO PCP (PCP) Patient Instructions: Anxiety and Panic Attacks Additional Instructions: Take your medication at home that you have for anxiety as prescribed by your primary health team in the emergency department the last time you were here Follow-up with your primary care physician, one of the listed clinics below or use the mental health's resources that were given to you by the psychiatric assessment team to help with further evaluation and management of your anxiety. [facility] [address] [place] [address] [facility] [address] [place] [address] [facility] [address] [facility] [place] [address] [facility] [address] [place] [address] [facility] [address] [place] [address] [address] [address] [place] [address] [address] [place] [address] [facility] [address] [place] [address] [facility] [address] [place] [address] [facility] [address] [place] [address] BASHIR VALADEZ BILL PEDDLER Feb 23, 2022 16:20
[2022-02-23 18:04] LABS: BASO # 0.1 x10^3/uL (0.0-0.2); BASO % 1 % (0-3); EOS # 0.1 x10^3/uL (0.0-0.7); EOS % 1 % (0-3); HEMATOCRIT 48.4 % (39.0-53.0); HEMOGLOBIN 16.8 g/dL (13.0-17.5); LYMPH # 1.9 x10^3/uL (1.0-4.8); LYMPH % 22 % (24-48); MEAN CORPUSCULAR HEMOGLOBIN 32 pg (25-35); MEAN CORPUSCULAR HGB CONC 35 g/dL (31-37); MEAN CORPUSCULAR VOLUME 91 fL (79-100); MONO # 0.9 x10^3/uL (0.0-1.1); MONO % 10 % (0-9); NEUT # 5.6 x10^3/uL (1.8-7.7); NEUT % 66 % (31-73); PLATELET COUNT 338 x10^3/uL (140-400); RED BLOOD COUNT 5.32 x10^6/uL (4.30-5.70); RED CELL DISTRIBUTION WIDTH 14.3 % (11.5-14.5); WHITE BLOOD COUNT 8.5 x10^3/uL (4.0-11.0)
[2022-02-23 18:13] LABS: CALCIUM 9.3 mg/dL (8.5-10.1); CREATININE 0.9 mg/dL (0.7-1.3); GFR 98.4; POTASSIUM 4.4 mmol/L (3.5-5.1)
[2022-02-23 18:18] LABS: ETHANOL < 10 mg/dL (0-10)
[2022-02-23 18:19] LABS: ACETAMIN < 2 mcg/ml (10-30); SALIC < 0.2 mg/dL (2.8-20.0)
[2022-02-23 18:31] VITALS: BP 159/114
[2022-02-23 19:04] LABS: BARBITURATES NEG (NEG); BENZODIAZEPINES NEG (NEG); CANNABINOIDS NEG (NEG); COCAINE NEG (NEG); METHADONE NEG (NEG); OPIATES NEG (NEG); PHENCYCLIDINE NEG (NEG)
[2022-02-23 19:09] LABS: AMPHETAMINE/METHAMPHETAMINE NEG (NEG)
[2022-02-23 19:28] LABS: BACTERIA,URINE 0 /HPF (0-FEW); RBC,URINE 0 /HPF (0-2)
[2022-02-23 19:29] LABS: AMORPHOUS SEDIMENT,UR PRESENT /HPF
== END 2022-02-23 20:30 | disposition home or self-care (01) ==
LOC: ER 15:34
DX: R45.1 Restlessness and agitation (principal); F41.9 Anxiety disorder, unspecified; F17.200 Nicotine dependence, unspecified, uncomplicated; F31.9 Bipolar disorder, unspecified
CPT/HCPCS: 36415; 80048; 80307; 80329; 81001; 85025; 99285; G0480; 99283